=== PATIENT | male | born 1945 | race Caucasian/White ===

== ENCOUNTER 2018-10-22 21:10 | Emergency (ER) | payer MEDICARE, BC, SELFPAY ==
--- NOTE | 2018-10-22 21:11 | DI.RAD.S_ITS ---
PROCEDURE: XR CHEST 1V INDICATIONS: sob TECHNIQUE: One view of the chest was acquired. COMPARISON: None. FINDINGS: Surgical changes and devices: Remote CABG plus valve surgery.. Lungs and pleura: Lungs are clear. No pleural effusions or pneumothorax. Mediastinum: Mediastinal contours appear normal. Mild cardiomegaly Bones and chest wall: There are multiple potential sclerotic lesions in the bones, including the right humeral head and right scapula and ribs. Findings are suspicious for possible blastic metastatic disease. Overlying soft tissues appear unremarkable. IMPRESSION: Question osseous blastic metastatic disease. Mild cardiomegaly. Negative for acute pulmonary process. Comment: Consider CT chest to evaluate possible bony metastatic lesions. This should include the right humeral head in the [id number]. Dictated by: Trace Dunlap M.D. on 10/22/2018 at 21:32 Approved by: Trace Dunlap M.D. on 10/22/2018 at 21:36
[2018-10-22 21:14] VITALS: BP 155/67; PULSE 73; RESP 19; TEMP 37.9; O2SAT 98; BMI 35.2
--- NOTE | 2018-10-22 21:17 | ED_ITS ---
HPI - SOB/Dyspnea General Chief Complaint: Shortness of Breath/Dyspnea Stated Complaint: SOB Time Seen by Provider: 10/22/18 21:16 Source: EMS Mode of arrival: EMS History of Present Illness Patient is a 73-year-old male with history of metastatic prostate cancer atrial fibrillation and cardiac valvular disease who presents with left-sided chest pain. He is visiting here from [place] yesterday he says he thought he had indigestion from bad food. He said it was worse indigestion he has ever had however by midmorning today he started having left-sided lower rib pain. He says it hurts every time he takes a breath and therefore feel short of breath but does not really have chest pain. does not radiate seems to be going in [address]. He denies any productive cough or fever. MD Complaint: chest pain Onset (ago): hour(s) Consistency/Duration: constant Related Data Previous Rx's Medication Instructions Recorded doxycycline hyclate 100 mg PO BID #14 cap 10/22/18 Review of Systems Review of Systems ROS Unobtainable: All systems reviewed & are unremarkable except as noted in HPI and below Constitutional Denies chills and Reports fever(s) (low grade in ED) Cardiovascular Reports chest pain (left sided), Reports irregular heart rhythm (hx of a.fib), Denies lightheadedness, Denies palpitations and Denies orthopnea Respiratory Reports pain on inspiration and Denies wheezing Gastrointestinal Gastrointestinal: Denies abdominal pain, Denies change in bowel habits, Denies diarrhea, Denies nausea and Denies vomiting Musculoskeletal Denies back pain, Denies muscle weakness, Denies numbness and Denies tingling Integumentary/Breasts Denies pruritus, Denies erythema, Denies rash and Denies wounds Neurologic Denies numbness and Denies tingling Endocrine Denies palpitations Allergic/Immunologic Denies wheezing [facility] Medical History Atrial fibrillation (Acute) Prostate cancer (Acute) Valvular heart disease (Acute) Social History Smoking Status: Former smoker Social History Smoking Status: Former smoker Comment: from [place] Exam Initial Vital Signs Initial Vital Signs: Vital Signs Temperature 100.2 F H 10/22/18 21:14 Pulse Rate 73 10/22/18 21:14 Respiratory Rate 19 10/22/18 21:14 Blood Pressure 155/67 H 10/22/18 21:14 Pulse Oximetry 98 10/22/18 21:14 GENERAL: Alert well-appearing gentleman in no acute distress HEENT: Head atraumatic,EOMI, pupils reactive CARDIOVASCULAR: Regular rate and rhythm without murmurs, rubs or gallops. Pain left lower ribs and left upper quadrant tender in 1 spot not reproducible with palpation RESPIRATORY: Breath sounds equal bilaterally, no wheezes rales or rhonchi. ABDOMEN: Soft, nontender. Normoactive bowel sounds all 4 quadrants. No guarding or rebound. left upper quadrant rib pain EXTREMITIES: Normal range of motion, no clubbing or edema. Neurovascularly intact NEUROLOGICAL: Alert and oriented x4.Normal gait and speech. SKIN: Warm, dry, no laceration, no petechiae, no rashes or lesions. Course Orders Ordered: Discontinued Medications Albuterol/Ipratropium (Duoneb) 3 ml INH NOW ONE Stop: 10/22/18 21:10 Aspirin (Aspirin Chew) 324 mg PO NOW ONE Stop: 10/22/18 21:26 Doxycycline Hyclate (Vibramycin) 100 mg PO NOW ONE Stop: 10/22/18 23:36 Last Admin: 10/22/18 23:52 Dose: 100 mg Nitroglycerin (Nitrostat) 0.4 mg SL [id number] PRN PRN Reason: Chest Pain Vital Signs - 8 hr 10/22/18 21:14 10/22/18 22:02 10/22/18 23:05 Temperature 100.2 F H Pulse Rate 73 72 60 Respiratory Rate 15 19 Blood Pressure 155/67 H Blood Pressure [Left Arm] 137/75 131/66 Pulse Oximetry 98 92 95 MDM - SOB/Dyspnea Lab Data Attestation: I reviewed the patient's lab results. Result diagrams: 10/22/18 21:50 10/22/18 21:50 Lab Results 10/22/18 10/22/18 10/22/18 Range/Units 21:50 21:50 21:50 WBC 14.0 H (4.5-11.0) X10^3/uL RBC 4.15 L (4.5-5.9) X10^6/uL Hgb 13.9 (13.5-17.5) g/dL Hct 41.0 (41-53) % MCV 98.8 (80-100) fL MCH 33.5 (26-34) PG MCHC 33.9 (30-36) % RDW 15.5 H (11.6-14.8) % Plt Count 135 L (150-400) X10^3/uL Neut % (Auto) 84.6 H (50-75) % Lymph % (Auto) 7.9 L (25-40) % [place] % (Auto) 7.3 (3-14) % Eos % (Auto) 0.0 L (2-4) % Baso % (Auto) 0.2 (0-2) % Neut # (Auto) 48693 H (9570-6875) /uL Lymph # (Auto) 1100 (6126-0326) /uL [place] # (Auto) 1000 H (0-900) /uL Eos # (Auto) 0 (0-450) /uL Baso # (Auto) 0 (0-100) /uL PT (10.1-12.7) SECONDS INR (0.9-1.3) APTT (26.4-36.2) SECONDS Sodium 137 (137-145) mmol/L Potassium 3.9 (3.4-5.1) mmol/L Chloride 101 (98-107) mmol/L Carbon Dioxide 29 (22-32) mmol/L BUN 15 (9-20) mg/dL Creatinine 0.70 (0.66-1.25) mg/dL Estimated GFR > 60.0 (>60) mL/min BUN/Creatinine Ratio 21.4 (6-22) Glucose 130 H (80-110) mg/dL Lactate (0.7-2.1) mmol/L Calcium 9.2 (8.4-10.2) mg/dL Magnesium 1.7 (1.6-2.3) mg/dL Total Bilirubin 2.2 H (0.2-1.3) mg/dL AST 27 (17-59) IU/L ALT 36 (21-72) IU/L Alkaline Phosphatase 80 (38-126) U/L Total Creatine Kinase 30 L (55-170) U/L CK-MB (CK-2) TNP CK-MB (CK-2) Rel Index TNP Troponin I 0.016 (0.01-0.034) ng/mL B-Natriuretic Peptide < 100 (<100) Total Protein 6.6 (6.3-8.2) g/dL Albumin 3.8 (3.5-5.0) g/dL Globulin 2.8 (1.7-4.1) g/dL Albumin/Globulin Ratio 1.4 (1.0-2.8) Lipase (23-300) U/L Procalcitonin 0.23 (<0.5) ng/mL Urine RBC (0-5/HPF) Urine WBC (0-5/HPF) Urine Bacteria (None) Ur Culture Indicated? 10/22/18 10/22/18 10/22/18 Range/Units 21:50 21:50 21:50 WBC (4.5-11.0) X10^3/uL RBC (4.5-5.9) X10^6/uL Hgb (13.5-17.5) g/dL Hct (41-53) % MCV (80-100) fL MCH (26-34) PG MCHC (30-36) % RDW (11.6-14.8) % Plt Count (150-400) X10^3/uL Neut % (Auto) (50-75) % Lymph % (Auto) (25-40) % [place] % (Auto) (3-14) % Eos % (Auto) (2-4) % Baso % (Auto) (0-2) % Neut # (Auto) (6049-8521) /uL Lymph # (Auto) (1705-8380) /uL [place] # (Auto) (0-900) /uL Eos # (Auto) (0-450) /uL Baso # (Auto) (0-100) /uL PT 27.1 H (10.1-12.7) SECONDS INR 2.3 H (0.9-1.3) APTT 38 H (26.4-36.2) SECONDS Sodium (137-145) mmol/L Potassium (3.4-5.1) mmol/L Chloride (98-107) mmol/L Carbon Dioxide (22-32) mmol/L BUN (9-20) mg/dL Creatinine (0.66-1.25) mg/dL Estimated GFR (>60) mL/min BUN/Creatinine Ratio (6-22) Glucose (80-110) mg/dL Lactate 1.8 (0.7-2.1) mmol/L Calcium (8.4-10.2) mg/dL Magnesium (1.6-2.3) mg/dL Total Bilirubin (0.2-1.3) mg/dL AST (17-59) IU/L ALT (21-72) IU/L Alkaline Phosphatase (38-126) U/L Total Creatine Kinase (55-170) U/L CK-MB (CK-2) CK-MB (CK-2) Rel Index Troponin I (0.01-0.034) ng/mL B-Natriuretic Peptide (<100) Total Protein (6.3-8.2) g/dL Albumin (3.5-5.0) g/dL Globulin (1.7-4.1) g/dL Albumin/Globulin Ratio (1.0-2.8) Lipase 36 (23-300) U/L Procalcitonin (<0.5) ng/mL Urine RBC (0-5/HPF) Urine WBC (0-5/HPF) Urine Bacteria (None) Ur Culture Indicated? 10/22/18 Range/Units 23:00 WBC (4.5-11.0) X10^3/uL RBC (4.5-5.9) X10^6/uL Hgb (13.5-17.5) g/dL Hct (41-53) % MCV (80-100) fL MCH (26-34) PG MCHC (30-36) % RDW (11.6-14.8) % Plt Count (150-400) X10^3/uL Neut % (Auto) (50-75) % Lymph % (Auto) (25-40) % [place] % (Auto) (3-14) % Eos % (Auto) (2-4) % Baso % (Auto) (0-2) % Neut # (Auto) (9244-9624) /uL Lymph # (Auto) (9631-9026) /uL [place] # (Auto) (0-900) /uL Eos # (Auto) (0-450) /uL Baso # (Auto) (0-100) /uL PT (10.1-12.7) SECONDS INR (0.9-1.3) APTT (26.4-36.2) SECONDS Sodium (137-145) mmol/L Potassium (3.4-5.1) mmol/L Chloride (98-107) mmol/L Carbon Dioxide (22-32) mmol/L BUN (9-20) mg/dL Creatinine (0.66-1.25) mg/dL Estimated GFR (>60) mL/min BUN/Creatinine Ratio (6-22) Glucose (80-110) mg/dL Lactate (0.7-2.1) mmol/L Calcium (8.4-10.2) mg/dL Magnesium (1.6-2.3) mg/dL Total Bilirubin (0.2-1.3) mg/dL AST (17-59) IU/L ALT (21-72) IU/L Alkaline Phosphatase (38-126) U/L Total Creatine Kinase (55-170) U/L CK-MB (CK-2) CK-MB (CK-2) Rel Index Troponin I (0.01-0.034) ng/mL B-Natriuretic Peptide (<100) Total Protein (6.3-8.2) g/dL Albumin (3.5-5.0) g/dL Globulin (1.7-4.1) g/dL Albumin/Globulin Ratio (1.0-2.8) Lipase (23-300) U/L Procalcitonin (<0.5) ng/mL Urine RBC None seen (0-5/HPF) Urine WBC 1-5/hpf (0-5/HPF) Urine Bacteria Many (>30) H (None) Ur Culture Indicated? Specimen cultured Urine Dip Bedside Urine Glucose Negative Bedside Urine Bilirubin - Negative Bedside Urine Ketone +/- 5 Urine Specific [place] 1.010 Bedside Urine Occult Blood - Negative Bedside Urine Protein +/- 15 Bedside Urine Urobilinogen +/- 1mg Bedside Urine Nitrite - Negative Bedside Urine Leukocytes + 70 Esterase Imaging Data Chest x-ray: Radiologist's impression: PROCEDURE: XR CHEST 1V INDICATIONS: sob TECHNIQUE: One view of the chest was acquired. COMPARISON: None. FINDINGS: Surgical changes and devices: Remote CABG plus valve surgery.. Lungs and pleura: Lungs are clear. No pleural effusions or pneumothorax. Mediastinum: Mediastinal contours appear normal. Mild cardiomegaly Bones and chest wall: There are multiple potential sclerotic lesions in the bones, including the right humeral head and right scapula and ribs. Findings are suspicious for possible blastic metastatic disease. Overlying soft tissues appear unremarkable. IMPRESSION: Question osseous blastic metastatic disease. Mild cardiomegaly. Negative for acute pulmonary process. Comment: Consider CT chest to evaluate possible bony metastatic lesions. This should include the right humeral head in the [id number]. Dictated by: Trace Dunlap M.D. 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 Bibasilar atelectasis and consolidation. Blastic metastasis compatible with prostate primary CT scan - abdomen: Radiologist's impression: manufacturing shift supervisor report: Innumerable blastic bony metastasis no acute intraperitoneal abnormality. ECG Data Attestation: I personally reviewed and interpreted this ECG as follows: Prior ECG tracings: not available for review Interpretation: Atrial fibrillation rate 75 do not agree with computer interpretation of acute AR he no ST elevations or depressions artifact noted EKG 2. Atrial fibrillation rate 74 similar to previous MDM Narrative Medical decision making narrative: At this time patient does not appear septic or toxic.Chest pain does not seem cardiac in nature it is in the left upper quadrant he has multiple blastic lesions throughout the thoracic spine bilateral ribs sternum and scapula of the right humerus. I suspect that his pain is probably from a blastic lesion. He does have mild leukocytosis low-grade fever with signs of upper right lobe infiltrate. I will put him on doxycycline. I discussed at length with patient and his needs to go to nearest ER if having any further difficulty pain. patient INR is 2.3 I do not suspect PE. I discussed need to check INR frequently while taking antibiotics. The patient does have a portable 1 that he has been using his at home he checks it once a week calls the company who then called his doctor who then calls him. He has it with him. We discussed risk of elevated INR and also risk of subtherapeutic INR. I discussed all findings with the patient and , Education has been performed regarding treatment plan, diagnosis, warning signs and symptoms and all concerns have been addressed. Verbally agree with and understood all of the above. Discharge Plan Departure Patient Disposition: Home Clinical Impression: Pneumonitis, Prostate cancer metastatic to bone Discharge Date/Time: 10/23/18 00:43 Interventions: ED Discharge Assessment Last Done: 10/23/18 00:39 Instructions: DI for Pneumonia -- Adult Activity Restrictions/Additional Instructions: *You have been diagnosed with pneumonitis and metastatic prostate cancer *What to do: Check INR every 2-3 days antibiotics can increase or decrease her INR. Go to nearest ER if you are having any further difficulty *Continue to take medications as directed Doxycycline 100 mg twice daily for 7 days *Follow up with your primary care provider in 2-3 days *Return to ER if you should have fever not controlled, worsening shortness of breath, chest pain or any new, worsening or concerning symptoms Prescriptions: New doxycycline hyclate 100 mg capsule 100 mg PO BID Qty: 14 RF: 0
--- NOTE | 2018-10-22 21:58 | DI.CT.S_ITS ---
PROCEDURE: CT CHEST ABD PEL W CON INDICATIONS: metastatic prostate cancer luq pain TECHNIQUE: After the administration of intravenous contrast, 5 mm thick sections acquired from the lung apices to the symphysis. 5 mm coronal and sagittal reformats were performed, with additional 7 mm MIP reformats through the lungs. For radiation dose reduction, the following was used: automated exposure control, adjustment of mA and/or kV according to patient size. COMPARISON: [facility], CR, XR CHEST 1V, 10/22/2018, 21:26. FINDINGS: Image quality: Excellent. CHEST: Lungs and pleura: There is an irregular groundglass nodule or nodular infiltrate in the right upper lobe measuring 2.3 x 2.1 cm. There are subpleural infiltrate and septal thickening bilaterally. There are bibasilar consolidation or atelectasis. A small left pleural effusion is present. No pneumothorax. Central and peripheral airways appear patent and normal in caliber. Mediastinum: Heart size is normal. No pericardial effusion. No mediastinal or hilar adenopathy by size criteria. Thoracic aorta and central pulmonary arteries are normal in size. Esophagus is normal in caliber. Tiny hiatal hernia. Chest wall: No axillary or supraclavicular adenopathy by size criteria. Thyroid gland enlarged and nodular. ABDOMEN: Solid organs: Liver is normal in size and enhancement. Gallbladder is surgically absent. Biliary system is non dilated. Pancreas enhances normally. Spleen is normal in size and enhancement. No adrenal nodules. Multiple indeterminate low density nodules in kidneys are present. Kidneys demonstrate normal size and enhancement, without hydronephrosis. Peritoneum and bowel: Bowel loops demonstrate normal wall thickness and caliber. No free fluid or air. Nodes and vessels: No retroperitoneal or mesenteric adenopathy by size criteria. Aorta and inferior vena cava are normal in size. A saccular aneurysm is seen in the distal abdominal aorta measuring 2..7 cm cephalocaudal x 1.3 cm anterior-posterior x 2.0 cm transverse, arising from the posterior wall. There is moderate osteoporosis. Miscellaneous: No ventral hernias. PELVIS: Genitourinary: Bladder wall thickness is normal. Prostate is enlarged. Miscellaneous: No inguinal hernias or adenopathy. Bones: There are widespread sclerotic bone lesions consistent with osseous metastases. No vertebral body compression fractures. IMPRESSION: 1. There is a 2.2 x 2.1 cm irregular groundglass nodule or nodular infiltrate. There are bibasilar consolidation or atelectasis. A small left effusion is present. An infectious or inflammatory etiology is favored. 2. Multiple indeterminate low density nodules in kidneys are most likely cysts. 3. Extensive osseous metastatic disease. 4. Enlarged prostate. 5. A saccular aneurysm in the distal abdominal aorta. 6. Prominent and nodular thyroid gland. Please correlate with serum function tests and thyroid ultrasound. 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 Dictated by: Isa White M.D. on 10/23/2018 at 7:43 Approved by: Isa White M.D. on 10/23/2018 at 7:53
--- NOTE | 2018-10-22 21:59 | PC.NURSE ---
Provider held medication orders at this time.
[2018-10-22 22:00] LABS: Add Manual Diff / Slide Review NO; Basophils Absolute Auto 0 /uL (0-100); Basophils Percent Auto 0.2 % (0-2); Eosinophils Absolute Auto 0 /uL (0-450); Hemoglobin 13.9 g/dL (13.5-17.5); Lymphocytes Absolute Auto 1100 /uL (1100-4500); Lymphocytes Percent Auto 7.9 % (25-40); Mean Corpuscular HGB Conc 33.9 % (30-36); Mean Corpuscular Hemoglobin 33.5 PG (26-34); Mean Corpuscular Volume 98.8 fL (80-100); Monocytes Absolute Auto 1000 /uL (0-900); Monocytes Percent Auto 7.3 % (3-14); Neutrophils Absolute Auto 11900 /uL (1500-7000); Neutrophils Percent Auto 84.6 % (50-75); Platelet Count 135 X10^3/uL (150-400); Red Blood Cell Count 4.15 X10^6/uL (4.5-5.9); Red Cell Distribution Width 15.5 % (11.6-14.8)
[2018-10-22 22:02] VITALS: BP 137/75; PULSE 72; RESP 15; O2SAT 92
--- NOTE | 2018-10-22 22:05 | PC.NURSE ---
pt reports metatastic prostate cancer. States he is having a severe pinching feeling on his left side with deep inspiration or coughing.
[2018-10-22 22:09] LABS: INR 2.3 (0.9-1.3); Prothrombin Time 27.1 SECONDS (10.1-12.7)
[2018-10-22 22:11] LABS: PTT Partial Thromboplastin Tim 38 SECONDS (26.4-36.2)
[2018-10-22 22:13] LABS: Alanine Aminotransferase 36 IU/L (21-72); Albumin 3.8 g/dL (3.5-5.0); Albumin Globulin Ratio 1.4 (1.0-2.8); Alkaline Phosphatase 80 U/L (38-126); Aspartate Aminotransferase 27 IU/L (17-59); BUN Creatinine Ratio 21.4 (6-22); Bilirubin Total 2.2 mg/dL (0.2-1.3); Blood Urea Nitrogen 15 mg/dL (9-20); Calcium 9.2 mg/dL (8.4-10.2); Carbon Dioxide 29 mmol/L (22-32); Chloride 101 mmol/L (98-107); Creatine Kinase 30 U/L (55-170); Estimated Glomerular Filt Rate > 60.0 mL/min (>60); Globulin 2.8 g/dL (1.7-4.1); Glucose 130 mg/dL (80-110); HEMOLYSIS < 15 (0-50); Lipase 36 U/L (23-300); Magnesium 1.7 mg/dL (1.6-2.3); Potassium 3.9 mmol/L (3.4-5.1); Sodium 137 mmol/L (137-145); Total Protein 6.6 g/dL (6.3-8.2)
[2018-10-22 22:14] LABS: Lactate (Lactic Acid) 1.8 mmol/L (0.7-2.1)
[2018-10-22 22:24] LABS: B Type Natriuretic Peptide < 100 (<100)
[2018-10-22 22:25] LABS: Troponin I 0.016 ng/mL (0.01-0.034)
[2018-10-22 22:27] LABS: Procalcitonin 0.23 ng/mL (<0.5)
[2018-10-22 23:05] VITALS: BP 131/66; PULSE 60; RESP 19; O2SAT 95
[2018-10-22 23:17] LABS: RBC Urine None Seen (0-5/HPF)
[2018-10-22 23:25] LABS: Bacteria Urine Many (>30); WBC Urine 1-5/HPF (0-5/HPF)
[2018-10-22 23:26] LABS: Culture Indicated Urine Specimen Cultured
[2018-10-22] MEDS: DOXYCYCLINE HYCLATE 100 MG TABLET PO (23:52)
[2018-10-23 00:39] VITALS: BP 132/65; PULSE 68; RESP 21; O2SAT 96
== END 2018-10-23 00:43 | disposition home or self-care (01) ==
PROVIDERS: Emergency Provider Emergency Medicine
CPT/HCPCS: 36415; 36591; 71045; 71260; 74177; 80053; 81003; 81015; 82550; 83605; 83690; 83735; 83880; 84145; 84484; 85025; 85610; 85730; 87040; 87077; 87086; 93005; Q9967

== ENCOUNTER 2018-10-23 09:42 | Inpatient (IN) | payer MEDICARE, BC, SELFPAY ==
[2018-10-23] VITALS (36 sets, daily range): BP systolic 60–219; BP diastolic 23–130; PULSE 61–113; RESP 12–40; TEMP 36.7–36.8; O2SAT 88–100; BMI 35.7
--- NOTE | 2018-10-23 | DI.RAD.S_ITS ---
PROCEDURE: XR CHEST 1V INDICATIONS: respiratory failure ? ARDS TECHNIQUE: One view of the chest was acquired. COMPARISON: [facility], CT, CT CHEST ABD PEL W CON, 10/22/2018, 22:27. [facility], CR, XR CHEST 1V, 10/23/2018, 11:29. [facility], CR, XR CHEST 1V, 10/23/2018, 13:09. FINDINGS: Surgical changes and devices: The endotracheal tube, nasogastric tube and left PICC central line are in stable position. Lungs and pleura: There is moderate left pleural effusion with left basilar consolidation or atelectasis. Overall, there is no significant change. No pneumothorax. Mediastinum: Mediastinal contours appear normal. Heart size is mildly increased. Bones and chest wall: Sclerotic bone lesions in ribs bilaterally, scapulae bilaterally and right clavicle are consistent with metastases. Overlying soft tissues appear unremarkable. IMPRESSION: 1. Moderate left effusion with left basilar consolidation or atelectasis. 2. Mild cardiomegaly. 3. Osseous metastasis. Dictated by: Isa White M.D. on 10/23/2018 at 20:15 Approved by: Isa White M.D. on 10/23/2018 at 20:19
--- NOTE | 2018-10-23 09:46 | DI.RAD.S_ITS ---
PROCEDURE: XR CHEST 1V INDICATIONS: Left lower chest pain, worsening. Concern for possible pneumonia on CT scanning last evening. Extensive osseous metastatic disease related to prostate carcinoma. TECHNIQUE: One view of the chest was acquired. COMPARISON: [facility], CT, CT CHEST ABD PEL W CON, 10/22/2018, 22:27. [facility], CR, XR CHEST 1V, 10/22/2018, 21:26. FINDINGS: Surgical changes and devices: Sternotomy wires, probable aortic valve replacement surgery. Lungs and pleura: Lungs are abnormal with reference to the prior chest plain film yesterday and the CT that was performed yesterday evening. There has been progression of asymmetric pneumonia, left greater than right, in this patient. No pleural effusions or pneumothorax. Mediastinum: Mediastinal contours appear normal. Heart size is normal. Bones and chest wall: No new suspicious bony lesions. Overlying soft tissues appear unremarkable. IMPRESSION: Osseous metastatic disease again noted. Worsening pneumonia bilaterally greater on the left than the right. Sternotomy wires, presumed prior aortic valve replacement surgery. Dictated by: Rainer Avila M.D. on 10/23/2018 at 10:42 Approved by: Rainer Avila M.D. on 10/23/2018 at 11:38
--- NOTE | 2018-10-23 10:05 | ED_ITS ---
HPI - SOB/Dyspnea General Chief Complaint: Shortness of Breath/Dyspnea Stated Complaint: L side pain with deep breath getting worse Time Seen by Provider: 10/23/18 09:46 Source: patient Mode of arrival: EMS Limitations: no limitations History of Present Illness Patient is a 73-year-old male who was seen evaluated here last night with known history of metastatic prostate cancer. He continues to have a left sided rib pain. He says it hurts every time he breathes or moves the pain is quite unbearable he never got any better. He had full CT chest abdomen and pelvis last night low-grade fever diagnosed with pneumonitis. He continues to have pain in 1 particular area. He feels short of breath because it hurts so much to breathe. He denies other chest pain. MD Complaint: pain with inspiration and chest pain Context: recent illness Severity: severe Consistency/Duration: constant Relieving factors: nothing Exacerbating factors: nothing Related Data Home Medications Medication Instructions Recorded Confirmed Calcium 1 tab PO TID 10/23/18 10/23/18 One-A-Day Men's Multivitamin 1 tab PO DAILY 10/23/18 10/23/18 abiraterone [Zytiga] 1,000 mg PO DAILY 10/23/18 10/23/18 amiodarone 400 mg PO DAILY 10/23/18 10/23/18 aspirin 81 mg PO BEDTIME 10/23/18 10/23/18 atorvastatin [Lipitor] 10 mg PO DAILY 10/23/18 10/23/18 garlic 1 tab PO QAM 10/23/18 10/23/18 metoprolol succinate [Toprol XL] 100 mg PO QPM 10/23/18 10/23/18 omega-3 acid ethyl esters [Lovaza] 1 cap PO BID 10/23/18 10/23/18 pantoprazole 40 mg PO DAILY 10/23/18 10/23/18 prednisone 5 mg PO BID 10/23/18 10/23/18 ramipril [Altace] 5 mg PO DAILY 10/23/18 10/23/18 warfarin 1 dose PO QPM 10/23/18 10/23/18 Previous Rx's Medication Instructions Recorded doxycycline hyclate 100 mg PO BID #14 cap 10/22/18 Allergies Allergy/AdvReac Type Severity Reaction Status Date / Time No Known Drug Allergies Allergy Verified 10/23/18 16:02 Review of Systems Review of Systems ROS Unobtainable: All systems reviewed & are unremarkable except as noted in HPI and below Constitutional Denies chills, Denies fever(s), Denies lethargy and Denies weakness ENT Ears, Nose, Mouth, and Throat: Denies change in voice, Denies neck pain and Denies sore throat Cardiovascular Reports as per HPI Respiratory Reports as per HPI, Denies change in phlegm color and Reports pain on inspiration Gastrointestinal Gastrointestinal: Denies abdominal pain, Denies change in bowel habits, Denies diarrhea, Denies nausea and Denies vomiting Genitourinary Denies hematuria, Denies flank pain, Denies urinary incontinence and Denies urinary urgency Musculoskeletal Denies neck pain Integumentary/Breasts Denies pruritus, Denies erythema, Denies rash and Denies wounds Neurologic Denies weakness [facility] Medical History (Updated 10/23/18 @ 15:33 by Danette Wright MD) Hyperlipidemia (Acute) Hypertension (Acute) Atrial fibrillation (Acute) Prostate cancer (Acute) Valvular heart disease (Acute) Surgical History (Updated 10/23/18 @ 15:33 by Danette Wright MD) H/O abdominal surgery (Acute) History of aortic aneurysm repair (Acute) 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 (Acute) Social History household members: significant other and friend(s) Smoking Status: Former smoker Social History household members: significant other and friend(s) Smoking Status: Former smoker Exam Initial Vital Signs Initial Vital Signs: Vital Signs Pulse Rate 74 10/23/18 11:25 Respiratory Rate 40 H 10/23/18 11:25 Blood Pressure 175/130 H 10/23/18 11:25 Pulse Oximetry 88 L 10/23/18 11:25 GENERAL: The patient overall appears in significant pain holding his left side- lower ribs HEENT: Head atraumatic,EOMI, pupils reactive, face symmetric, neck is supple CARDIOVASCULAR: Regular rate and rhythm without murmurs, rubs or gallops. RESPIRATORY: Tachypneic with decreased breath bilaterally unable speak in full sentences ABDOMEN: Soft, nontender. Normoactive bowel sounds all 4 quadrants. No guarding or rebound. EXTREMITIES: Normal range of motion, no clubbing or edema. Neurovascularly intact NEUROLOGICAL: Alert and oriented x4.Normal gait and speech. Cranial nerves II through XII grossly intact. SKIN: Warm, dry, no laceration, no petechiae, no rashes or lesions. Procedures Intubation Time out performed: Yes sedative: Etomidate Mg Given: 20 paralytic: Succinylcholine Mg Given: 100 Laryngoscope: other (glide scope) ET Tube Size: 7.5 ET Tube Uncuffed: Yes Tube Secured Depth (cm): 22 Tube Secured Location: lips Tube Placement Confirmation: Visualized tube passing through cords, Equal breath sounds bilaterally, No breath sounds over epigastrium, Confirmation by capnometry and Chest Xray Patient Tolerated Procedure: Well Intubation Complications: none Course Orders Ordered: ED Orders 10/23/18 09:46 XR chest 1V Stat EKG-12 Lead Stat 10/23/18 10:25 B Type Natriuretic Peptide Stat Complete Blood Count AUTO DIFF Stat Comprehensive Metabolic Panel Stat Lactate (Lactic Acid) Stat Lipase Stat Procalcitonin Stat Prothrombin Time INR Stat Troponin & CK Cardiac Panel Stat 10/23/18 11:30 Chest [XR chest 1V] Stat 10/23/18 11:41 US chest Stat 10/23/18 11:45 Urinalysis and Microscopic Stat Urine Culture Stat 10/23/18 13:01 Chest [XR chest 1V] Stat 10/23/18 13:25 Blood Culture Stat 10/23/18 15:17 Consult to Dietitian, Adult Routine Endotracheal tube suction As needed 10/23/18 15:30 Arterial Blood Gas Daily Complete Blood Count AUTO DIFF DAILY Comprehensive Metabolic Panel DAILY Sputum Culture 10/23/18 15:43 Arterial Blood Gas Stat 10/23/18 16:49 Lactate (Lactic Acid) Stat 10/24/18 05:00 Complete Blood Count AUTO DIFF Routine Comprehensive Metabolic Panel Routine Prothrombin Time INR Routine 10/24/18 06:00 XR chest 1V Routine 10/24/18 15:30 XR chest 1V DAILY Arterial Blood Gas Daily Complete Blood Count AUTO DIFF DAILY Comprehensive Metabolic Panel DAILY Sputum Culture 10/25/18 06:00 XR chest 1V Routine 10/25/18 15:30 XR chest 1V DAILY Arterial Blood Gas Daily Complete Blood Count AUTO DIFF DAILY Comprehensive Metabolic Panel DAILY Sputum Culture 10/26/18 15:30 XR chest 1V DAILY Arterial Blood Gas Daily Complete Blood Count AUTO DIFF DAILY Comprehensive Metabolic Panel DAILY 10/27/18 15:30 XR chest 1V DAILY Arterial Blood Gas Daily Complete Blood Count AUTO DIFF DAILY Comprehensive Metabolic Panel DAILY 10/28/18 15:30 XR chest 1V DAILY Arterial Blood Gas Daily Complete Blood Count AUTO DIFF DAILY Comprehensive Metabolic Panel DAILY 10/29/18 15:30 XR chest 1V DAILY Arterial Blood Gas Daily Complete Blood Count AUTO DIFF DAILY Comprehensive Metabolic Panel DAILY 10/30/18 15:30 XR chest 1V DAILY Arterial Blood Gas Daily Complete Blood Count AUTO DIFF DAILY Comprehensive Metabolic Panel DAILY 10/31/18 15:30 XR chest 1V DAILY Arterial Blood Gas Daily Complete Blood Count AUTO DIFF DAILY Comprehensive Metabolic Panel DAILY 11/01/18 15:30 XR chest 1V DAILY Arterial Blood Gas Daily Complete Blood Count AUTO DIFF DAILY Comprehensive Metabolic Panel DAILY 11/02/18 15:30 XR chest 1V DAILY Arterial Blood Gas Daily Complete Blood Count AUTO DIFF DAILY Comprehensive Metabolic Panel DAILY 11/03/18 15:30 XR chest 1V DAILY Arterial Blood Gas Daily Complete Blood Count AUTO DIFF DAILY Comprehensive Metabolic Panel DAILY 11/04/18 15:30 XR chest 1V DAILY Arterial Blood Gas Daily Complete Blood Count AUTO DIFF DAILY Comprehensive Metabolic Panel DAILY 11/05/18 15:30 XR chest 1V DAILY Arterial Blood Gas Daily Complete Blood Count AUTO DIFF DAILY Comprehensive Metabolic Panel DAILY Acetaminophen (Tylenol) 650 mg [place] Q6HR PRN PRN Reason: As Needed for Fever/Mild Pain Amiodarone HCl (Cordarone) 400 mg PO DAILY [facility] Aspirin (Aspirin Chew) 81 mg PO DAILY [facility] Atorvastatin Calcium (Lipitor) 10 mg PO BEDTIME [facility] Bisacodyl (Dulcolax) 10 mg [place] DAILY PRN PRN Reason: Constipation Hydromorphone HCl (Dilaudid) 0.5 mg SUBCUT Q4H PRN PRN Reason: Pain, Severe (7-10) Last Admin: 10/23/18 10:17 Dose: 0.5 mg Famotidine (Pepcid) 20 mg in 50 mls @ 200 mls/hr IV Q12H ANETTE Azithromycin 500 mg/ Dextrose 250 mls @ 250 mls/hr IV Q24H [facility] Lactated Ringer's (Lactated Ringers) 1,000 mls @ 100 mls/hr IV CONT ANETTE Last Admin: 10/23/18 16:20 Dose: 100 mls/hr Ceftriaxone Sodium/Dextrose (Rocephin) 2 gm in 50 mls @ 100 mls/hr IV Q24H [facility] Sodium Chloride (Normal Saline 0.9%) 500 mls @ 1,000 mls/hr IV BOLUS ONE Stop: 10/23/18 17:19 Last Admin: 10/23/18 17:14 Dose: 1,000 mls/hr Morphine Sulfate 50 mg/ (Dextrose) 50 mls @ 2 mls/hr IV TITRATE ANETTE; Protocol Midazolam HCl 50 mg/ Dextrose 250 mls @ 10 mls/hr IV TITRATE ANETTE; Protocol Metoprolol Succinate (Toprol Xl) 100 mg PO DAILY ANETTE Prednisone (Deltasone) 5 mg PO BID ANETTE Ramipril (Altace) 5 mg PO DAILY ANETTE Warfarin Sodium (Coumadin) 4 mg PO 1700 ANETTE Discontinued Medications Acetaminophen (Tylenol) 975 mg PO NOW ONE Stop: 10/23/18 09:50 Last Admin: 10/23/18 11:52 Dose: Not Given Aspirin (Aspirin Ec) 81 mg PO DAILY [facility] Last Admin: 10/23/18 16:35 Dose: Not Given Etomidate (Amidate) 20 mg IV NOW ONE Stop: 10/23/18 11:15 Last Admin: 10/23/18 11:24 Dose: 20 mg Hydromorphone HCl (Dilaudid) 1 mg IV NOW ONE Stop: 10/23/18 10:31 Last Admin: 10/23/18 10:38 Dose: 1 mg Hydromorphone HCl (Dilaudid) 1 mg IV NOW ONE Stop: 10/23/18 12:38 Last Admin: 10/23/18 12:43 Dose: 1 mg Ceftriaxone Sodium/Dextrose (Rocephin) 1 gm in 50 mls @ 100 mls/hr IV NOW ONE Stop: 10/23/18 11:11 Last Infusion: 10/23/18 13:58 Dose: 0 mls/hr Infusion: 10/23/18 11:05 Dose: 50 mls/hr Admin: 10/23/18 10:55 Dose: 100 mls/hr Azithromycin 500 mg/ Dextrose 250 mls @ 250 mls/hr IV NOW ONE Stop: 10/23/18 10:43 Last Infusion: 10/23/18 15:55 Dose: 0 mls/hr Admin: 10/23/18 13:59 Dose: 250 mls/hr Propofol (Propofol) 1,000 mg in 100 mls @ 3.084 mls/hr IV TITRATE ANETTE; Protocol Last Titration: 10/23/18 12:29 Dose: 5 mcg/kg/min, 3.084 mls/hr Titration: 10/23/18 12:27 Dose: 14.59 mcg/kg/min, 9 mls/hr Admin: 10/23/18 12:15 Dose: 18 mcg/kg/min, 11.102 mls/hr Propofol (Propofol) 1,000 mg in 100 mls @ 3.105 mls/hr IV TITRATE ANETTE; Protocol Last Admin: 10/23/18 17:11 Dose: Not Given Lorazepam (Ativan) 1 mg IV NOW ONE Stop: 10/23/18 12:38 Last Admin: 10/23/18 12:43 Dose: 1 mg Morphine Sulfate (Morphine) 2 mg IV NOW ONE Stop: 10/23/18 09:47 Last Admin: 10/23/18 11:51 Dose: Not Given Succinylcholine Chloride (Quelicin) 100 mg IV NOW ONE Stop: 10/23/18 11:17 Last Admin: 10/23/18 11:32 Dose: 100 mg Vital Signs - 8 hr 10/23/18 11:25 10/23/18 11:45 10/23/18 11:49 Temperature Pulse Rate 74 72 75 Respiratory Rate 40 H 14 14 Blood Pressure Blood Pressure [Left Arm] 175/130 H 106/52 L 106/52 L Pulse Oximetry 88 L 99 100 10/23/18 12:00 10/23/18 12:06 10/23/18 12:30 Temperature Pulse Rate 76 75 72 Respiratory Rate 14 14 14 Blood Pressure Blood Pressure [Left Arm] 78/43 L 88/64 L Pulse Oximetry 96 100 96 10/23/18 13:15 10/23/18 14:58 Temperature 98.0 F Pulse Rate 82 85 Respiratory Rate 20 20 Blood Pressure 88/40 L Blood Pressure [Left Arm] 109/23 L Pulse Oximetry 96 100 MDM - SOB/Dyspnea Lab Data Attestation: I reviewed the patient's lab results. Result diagrams: 10/23/18 10:25 10/23/18 10:25 Lab Results 10/23/18 10/23/18 10/23/18 Range/Units 10:25 10:25 10:25 WBC 14.2 H (4.5-11.0) X10^3/uL RBC 4.41 L (4.5-5.9) X10^6/uL Hgb 15.1 (13.5-17.5) g/dL Hct 43.1 (41-53) % MCV 97.8 (80-100) fL MCH 34.2 H (26-34) PG MCHC 35.0 (30-36) % RDW 15.8 H (11.6-14.8) % Plt Count 163 (150-400) X10^3/uL Neut % (Auto) 85.7 H (50-75) % Lymph % (Auto) 8.7 L (25-40) % [place] % (Auto) 5.2 (3-14) % Eos % (Auto) 0.0 L (2-4) % Baso % (Auto) 0.4 (0-2) % Neut # (Auto) 19761 H (0820-3314) /uL Lymph # (Auto) 1200 (1134-9820) /uL [place] # (Auto) 700 (0-900) /uL Eos # (Auto) 0 (0-450) /uL Baso # (Auto) 100 (0-100) /uL PT (10.1-12.7) SECONDS INR (0.9-1.3) ABG pH (7.35-7.45) ABG pCO2 (35-45) mmHg ABG pO2 (80-100) mmHg ABG HCO3 (22-26) mmol/L ABG Total CO2 (21-31) mmol/L ABG O2 Saturation (95-100) % ABG Base Excess (-2-2) mmol/L FiO2 Sodium 137 (137-145) mmol/L Potassium 3.8 (3.4-5.1) mmol/L Chloride 101 (98-107) mmol/L Carbon Dioxide 25 (22-32) mmol/L BUN 15 (9-20) mg/dL Creatinine 0.60 L (0.66-1.25) mg/dL Estimated GFR > 60.0 (>60) mL/min BUN/Creatinine Ratio 25.0 H (6-22) Glucose 128 H (80-110) mg/dL Lactate (0.7-2.1) mmol/L Calcium 9.1 (8.4-10.2) mg/dL Total Bilirubin 2.2 H (0.2-1.3) mg/dL AST 39 (17-59) IU/L ALT 35 (21-72) IU/L Alkaline Phosphatase 87 (38-126) U/L Total Creatine Kinase 36 L (55-170) U/L CK-MB (CK-2) TNP CK-MB (CK-2) Rel Index TNP Troponin I 0.021 (0.01-0.034) ng/mL B-Natriuretic Peptide 120 H (<100) Total Protein 6.9 (6.3-8.2) g/dL Albumin 4.0 (3.5-5.0) g/dL Globulin 2.9 (1.7-4.1) g/dL Albumin/Globulin Ratio 1.4 (1.0-2.8) Lipase 51 (23-300) U/L Procalcitonin 0.23 (<0.5) ng/mL Urine Color Urine Appearance Urine pH (4.5-8.0) Ur Specific [place] (1.000-1.035) Urine Protein (Negative) Urine Glucose (UA) (Negative) g/dL Urine Ketones (NEGATIVE) Urine Occult Blood (Negative) Urine Nitrate (Negative) Urine Bilirubin (NEGATIVE) Urine Urobilinogen (0.2) E.U./dL Ur Leukocyte Esterase (NEGATIVE) Urine RBC (0-5/HPF) Urine WBC (0-5/HPF) Urine Bacteria (None) Ur Culture Indicated? 10/23/18 10/23/18 10/23/18 Range/Units 10:25 10:25 11:45 WBC (4.5-11.0) X10^3/uL RBC (4.5-5.9) X10^6/uL Hgb (13.5-17.5) g/dL Hct (41-53) % MCV (80-100) fL MCH (26-34) PG MCHC (30-36) % RDW (11.6-14.8) % Plt Count (150-400) X10^3/uL Neut % (Auto) (50-75) % Lymph % (Auto) (25-40) % [place] % (Auto) (3-14) % Eos % (Auto) (2-4) % Baso % (Auto) (0-2) % Neut # (Auto) (4246-2570) /uL Lymph # (Auto) (4982-4299) /uL [place] # (Auto) (0-900) /uL Eos # (Auto) (0-450) /uL Baso # (Auto) (0-100) /uL PT 28.9 H (10.1-12.7) SECONDS INR 2.5 H (0.9-1.3) ABG pH (7.35-7.45) ABG pCO2 (35-45) mmHg ABG pO2 (80-100) mmHg ABG HCO3 (22-26) mmol/L ABG Total CO2 (21-31) mmol/L ABG O2 Saturation (95-100) % ABG Base Excess (-2-2) mmol/L FiO2 Sodium (137-145) mmol/L Potassium (3.4-5.1) mmol/L Chloride (98-107) mmol/L Carbon Dioxide (22-32) mmol/L BUN (9-20) mg/dL Creatinine (0.66-1.25) mg/dL Estimated GFR (>60) mL/min BUN/Creatinine Ratio (6-22) Glucose (80-110) mg/dL Lactate 1.4 (0.7-2.1) mmol/L Calcium (8.4-10.2) mg/dL Total Bilirubin (0.2-1.3) mg/dL AST (17-59) IU/L ALT (21-72) IU/L Alkaline Phosphatase (38-126) U/L Total Creatine Kinase (55-170) U/L CK-MB (CK-2) CK-MB (CK-2) Rel Index Troponin I (0.01-0.034) ng/mL B-Natriuretic Peptide (<100) Total Protein (6.3-8.2) g/dL Albumin (3.5-5.0) g/dL Globulin (1.7-4.1) g/dL Albumin/Globulin Ratio (1.0-2.8) Lipase (23-300) U/L Procalcitonin (<0.5) ng/mL Urine Color Yellow Urine Appearance Cloudy Urine pH 8.5 H (4.5-8.0) Ur Specific [place] 1.015 (1.000-1.035) Urine Protein 1+ H (Negative) Urine Glucose (UA) Negative (Negative) g/dL Urine Ketones Trace H (NEGATIVE) Urine Occult Blood Trace-lysed (Negative) Urine Nitrate Negative (Negative) Urine Bilirubin Negative (NEGATIVE) Urine Urobilinogen 0.2 (0.2) E.U./dL Ur Leukocyte Esterase 1+ H (NEGATIVE) Urine RBC None seen (0-5/HPF) Urine WBC 10-30/hpf H D (0-5/HPF) Urine Bacteria Many (>30) H (None) Ur Culture Indicated? Specimen cultured 10/23/18 Range/Units 15:43 WBC (4.5-11.0) X10^3/uL RBC (4.5-5.9) X10^6/uL Hgb (13.5-17.5) g/dL Hct (41-53) % MCV (80-100) fL MCH (26-34) PG MCHC (30-36) % RDW (11.6-14.8) % Plt Count (150-400) X10^3/uL Neut % (Auto) (50-75) % Lymph % (Auto) (25-40) % [place] % (Auto) (3-14) % Eos % (Auto) (2-4) % Baso % (Auto) (0-2) % Neut # (Auto) (3779-2255) /uL Lymph # (Auto) (9521-8595) /uL [place] # (Auto) (0-900) /uL Eos # (Auto) (0-450) /uL Baso # (Auto) (0-100) /uL PT (10.1-12.7) SECONDS INR (0.9-1.3) ABG pH 7.39 (7.35-7.45) ABG pCO2 30.5 L (35-45) mmHg ABG pO2 75 L (80-100) mmHg ABG HCO3 18 L (22-26) mmol/L ABG Total CO2 19 L (21-31) mmol/L ABG O2 Saturation 95 (95-100) % ABG Base Excess -7.0 L (-2-2) mmol/L FiO2 65 Sodium (137-145) mmol/L Potassium (3.4-5.1) mmol/L Chloride (98-107) mmol/L Carbon Dioxide (22-32) mmol/L BUN (9-20) mg/dL Creatinine (0.66-1.25) mg/dL Estimated GFR (>60) mL/min BUN/Creatinine Ratio (6-22) Glucose (80-110) mg/dL Lactate (0.7-2.1) mmol/L Calcium (8.4-10.2) mg/dL Total Bilirubin (0.2-1.3) mg/dL AST (17-59) IU/L ALT (21-72) IU/L Alkaline Phosphatase (38-126) U/L Total Creatine Kinase (55-170) U/L CK-MB (CK-2) CK-MB (CK-2) Rel Index Troponin I (0.01-0.034) ng/mL B-Natriuretic Peptide (<100) Total Protein (6.3-8.2) g/dL Albumin (3.5-5.0) g/dL Globulin (1.7-4.1) g/dL Albumin/Globulin Ratio (1.0-2.8) Lipase (23-300) U/L Procalcitonin (<0.5) ng/mL Urine Color Urine Appearance Urine pH (4.5-8.0) Ur Specific [place] (1.000-1.035) Urine Protein (Negative) Urine Glucose (UA) (Negative) g/dL Urine Ketones (NEGATIVE) Urine Occult Blood (Negative) Urine Nitrate (Negative) Urine Bilirubin (NEGATIVE) Urine Urobilinogen (0.2) E.U./dL Ur Leukocyte Esterase (NEGATIVE) Urine RBC (0-5/HPF) Urine WBC (0-5/HPF) Urine Bacteria (None) Ur Culture Indicated? Imaging Data Chest XR #1: Radiologist's impression: PROCEDURE: XR CHEST 1V INDICATIONS: Left lower chest pain, worsening. Concern for possible pneumonia on CT scanning last evening. Extensive osseous metastatic disease related to prostate carcinoma. TECHNIQUE: One view of the chest was acquired. COMPARISON: [facility], CT, CT CHEST ABD PEL W CON, 10/22/2018, 22:27. [facility], CR, XR CHEST 1V, 10/22/2018, 21:26. FINDINGS: Surgical changes and devices: Sternotomy wires, probable aortic valve replacement surgery. Lungs and pleura: Lungs are abnormal with reference to the prior chest plain film yesterday and the CT that was performed yesterday evening. There has been progression of asymmetric pneumonia, left greater than right, in this patient. No pleural effusions or pneumothorax. Mediastinum: Mediastinal contours appear normal. Heart size is normal. Bones and chest wall: No new suspicious bony lesions. Overlying soft tissues appear unremarkable. IMPRESSION: Osseous metastatic disease again noted. Worsening pneumonia bilaterally greater on the left than the right. Sternotomy wires, presumed prior aortic valve replacement surgery. Dictated by: Rainer Avila M.D. on 10/23/2018 at 10:42 Chest XR #2: Radiologist's impression: PROCEDURE: XR CHEST 1V INDICATIONS: tube placement TECHNIQUE: One view of the chest was acquired. COMPARISON: [facility], , XR CHEST 1V, 10/23/2018, 10:10. FINDINGS: Surgical changes and devices: ET tube tip is approximately 2 cm above the faith. Sternotomy wires and prosthetic heart valve are again seen. Lungs and pleura: There is extensive pulmonary vascular congestion. Left greater than right bilateral pleural effusion is seen. No gross pneumothorax. Extensive ill-defined air space opacities are noted scattered in bilateral lung sanchez. Mediastinum: Mediastinal contours appear normal. Heart size is normal. Bones and chest wall: Ill-defined sclerotic areas scattered in right humeral head and inferior portion of right glenoid is seen, likely representing metastatic disease given patient's history of prostate cancer. Numerous rib lesions also likely present. Overlying soft tissues appear unremarkable. IMPRESSION: 1. ET tube appears in satisfactory position. 2. Congestive changes with pulmonary edema and left greater than right bilateral pleural effusion. Underlying airspace opacities in bilateral lung sanchez also present. No gross pneumothorax. 3. Suggestion of extensive bony metastasis. Dictated by: Chi Park M.D. on 10/23/2018 at 11:43 Chest #3: Radiologist's impression: PROCEDURE: XR CHEST 1V INDICATIONS: picc line placement TECHNIQUE: One view of the chest was acquired. COMPARISON: [facility], , XR CHEST 1V, 10/23/2018, 11:29. FINDINGS: Surgical changes and devices: There is a left upper extremity PICC line with the tip extending into the superior vena cava approximately 4 cm from the cavoatrial junction. Endotracheal tube redemonstrated with the tip approximately 3.6 cm from the faith. A new nasogastric tube is noted extending into the stomach with the tip not included on the current study. Postsurgical changes are also redemonstrated in the mediastinum. Lungs and pleura: There are low lung volumes. Persistent bilateral pleural effusions are demonstrated, moderate on the left with probable loculation and small on the right. There are left basilar opacities consistent with atelectasis or consolidation. There is persistent pulmonary edema which appears increased. No definite pneumothorax. Mediastinum: Mediastinal contours appear prominent likely due to portable supine technique. Heart size is enlarged. Bones and chest wall: No suspicious bony lesions. Overlying soft tissues appear unremarkable. IMPRESSION: 1. New PICC line extends into the superior vena cava. 2. Nasogastric tube extends into the stomach with the tip not included on the current study. 3. Low lung volumes with increased pulmonary edema and persistent bilateral pleural effusions, left greater than right. Left basilar atelectasis or consolidation is also redemonstrated. Dictated by: Luis Schulz M.D. on 10/23/2018 at 13:19 US thora: Radiologist's impression: PROCEDURE: US CHEST COMPARISON: None. INDICATIONS: LOOK TO SEE IF FLUID, MAY NEED THORACENTESIS FINDINGS: No pleural effusion is found, no thoracentesis appears warranted. IMPRESSION: Normal chest ultrasound, no pleural effusion for thoracentesis. Dictated by: Rainer Avila M.D. on 10/23/2018 at 12:35 ECG Data Attestation: I personally reviewed and interpreted this ECG as follows: Prior ECG tracings: available for review MDM Narrative Medical decision making narrative: Actually spoke with Radiology and regards to CT done last evening. See if there any masses or lesions that could be causing his pain. No masses or lesions his were identified. Rainer Avila reviewed the CT for me. Repeat chest x-ray today shows significant pneumonia which is likely causing his pain. He has a therapeutic INR of 2.3. I do not believe him to have PE. Patient really seem to be in quite a bit of pain of tachypneic breathing for 36- 40. He was given pain medication did not seem to help. Was tried on BiPAP but continued to be tachypneic and and pain seem to be in significant respiratory d istress. Long conversation with patient and about intubation and code status. At this time they are both agreeable to intubation and CPR. Patient was intubated. Patient was intubated without any difficulty. Ultrasound does not reveal any sort of fluid. I confirmed again with radiology Dr. Rainer Avila that there is no pleural effusion that could be drained this is more likely to be pneumonia. I have updated Dr. Wright on ultrasound results. Patient initially placed on propofol drip however blood pressure decreased. He was then given IV pushes of Dilaudid and Ativan. Blood pressure improved as propofol was turned down. Also of note patient has gram-negative bacteria. Urine from last evening, covered with Rocephin Critical Care Time Critical Care Time: Yes Total Critical Care Time: 45 Attestation: The high probability of a clinically significant, sudden or life threatening deterioration of the respiratory/cardiovascular system(s) required my full and direct attention, intervention and personal management. The aggregate critical care time was [45] minutes. This time is in addition to time spent performing reported procedures but includes the following: [x] Data Review and interpretation [x] Patient assessment and monitoring of vital signs [x] Documentation [x] Medication orders and management Discharge Plan Departure Patient Disposition: Admitted As Inpatient Clinical Impression: Acute UTI Respiratory failure Qualifiers: Chronicity: acute Respiratory failure complication: unspecified whether with hypoxia or hypercapnia Qualified Code(s): J96.00 - Acute respiratory failure, unspecified whether with hypoxia or hypercapnia Pneumonia Qualifiers: Pneumonia type: due to unspecified organism Laterality: left Lung location: unspecified part of lung Qualified Code(s): J18.9 - Pneumonia, unspecified organism Discharge Date/Time: 10/23/18 13:45 Interventions: ED Discharge Assessment Last Done: 10/23/18 12:58 Admit Date/Time: 10/23/18 12:55 Admit Provider: Danette Wright
[2018-10-23] MEDS: HYDROMORPHONE 2 MG INJ 0.5 MG SUBCUT (10:17)
[2018-10-23] MEDS: HYDROMORPHONE 1 MG INJ IV ×2 (10:38→12:43)
[2018-10-23 10:42] LABS: Add Manual Diff / Slide Review NO; Basophils Absolute Auto 100 /uL (0-100); Basophils Percent Auto 0.4 % (0-2); Eosinophils Absolute Auto 0 /uL (0-450); Hematocrit 43.1 % (41-53); Hemoglobin 15.1 g/dL (13.5-17.5); Lymphocytes Absolute Auto 1200 /uL (1100-4500); Lymphocytes Percent Auto 8.7 % (25-40); Mean Corpuscular Hemoglobin 34.2 PG (26-34); Mean Corpuscular Volume 97.8 fL (80-100); Monocytes Absolute Auto 700 /uL (0-900); Monocytes Percent Auto 5.2 % (3-14); Neutrophils Absolute Auto 12200 /uL (1500-7000); Neutrophils Percent Auto 85.7 % (50-75); Platelet Count 163 X10^3/uL (150-400); Red Blood Cell Count 4.41 X10^6/uL (4.5-5.9); Red Cell Distribution Width 15.8 % (11.6-14.8); White Blood Cell Count 14.2 X10^3/uL (4.5-11.0)
[2018-10-23 10:46] LABS: INR 2.5 (0.9-1.3); Prothrombin Time 28.9 SECONDS (10.1-12.7)
[2018-10-23 10:52] LABS: Alanine Aminotransferase 35 IU/L (21-72); Albumin Globulin Ratio 1.4 (1.0-2.8); Alkaline Phosphatase 87 U/L (38-126); Aspartate Aminotransferase 39 IU/L (17-59); Bilirubin Total 2.2 mg/dL (0.2-1.3); Blood Urea Nitrogen 15 mg/dL (9-20); Calcium 9.1 mg/dL (8.4-10.2); Carbon Dioxide 25 mmol/L (22-32); Chloride 101 mmol/L (98-107); Creatine Kinase 36 U/L (55-170); Estimated Glomerular Filt Rate > 60.0 mL/min (>60); Globulin 2.9 g/dL (1.7-4.1); Glucose 128 mg/dL (80-110); HEMOLYSIS 69 (0-50); Lactate (Lactic Acid) 1.4 mmol/L (0.7-2.1); Lipase 51 U/L (23-300); Potassium 3.8 mmol/L (3.4-5.1); Sodium 137 mmol/L (137-145); Total Protein 6.9 g/dL (6.3-8.2)
[2018-10-23] MEDS: CEFTRIAXONE 1 GM/50 ML FROZ.PIGGY IV (10:55)
--- NOTE | 2018-10-23 10:57 | PC.NURSE ---
RT at bedside setting up BIPAP. Patient resp 35-40 breaths per min maintaining sats in mid 80-90 on NRB. Patient c/o pain on left side of chest with breaths.
[2018-10-23 11:03] LABS: Troponin I 0.021 ng/mL (0.01-0.034)
[2018-10-23 11:07] LABS: Procalcitonin 0.23 ng/mL (<0.5)
[2018-10-23 11:20] LABS: B Type Natriuretic Peptide 120 (<100)
--- NOTE | 2018-10-23 11:23 | PC.NURSE ---
RT, and Two RN at bedside setting up for intubation.20mg IV Etomidate 1124, followed by Succs 100mg IV. Patient bagged by RT. Intubated with size 7.5 tube, 22 at the lip/
[2018-10-23] MEDS: ETOMIDATE 2 MG/ML VIAL 20 MG IV (11:24)
--- NOTE | 2018-10-23 11:30 | DI.RAD.S_ITS ---
PROCEDURE: XR CHEST 1V INDICATIONS: tube placement TECHNIQUE: One view of the chest was acquired. COMPARISON: [facility], CR, XR CHEST 1V, 10/23/2018, 10:10. FINDINGS: Surgical changes and devices: ET tube tip is approximately 2 cm above the faith. Sternotomy wires and prosthetic heart valve are again seen. Lungs and pleura: There is extensive pulmonary vascular congestion. Left greater than right bilateral pleural effusion is seen. No gross pneumothorax. Extensive ill-defined air space opacities are noted scattered in bilateral lung sanchez. Mediastinum: Mediastinal contours appear normal. Heart size is normal. Bones and chest wall: Ill-defined sclerotic areas scattered in right humeral head and inferior portion of right glenoid is seen, likely representing metastatic disease given patient's history of prostate cancer. Numerous rib lesions also likely present. Overlying soft tissues appear unremarkable. IMPRESSION: 1. ET tube appears in satisfactory position. 2. Congestive changes with pulmonary edema and left greater than right bilateral pleural effusion. Underlying airspace opacities in bilateral lung sanchez also present. No gross pneumothorax. 3. Suggestion of extensive bony metastasis. Dictated by: Chi Park M.D. on 10/23/2018 at 11:43 Approved by: Chi Park M.D. on 10/23/2018 at 11:46
[2018-10-23] MEDS: SUCCINYLCHOLINE 200 MG/10 ML VIAL 100 MG IV (11:32)
--- NOTE | 2018-10-23 11:41 | DI.US.S_ITS ---
PROCEDURE: US CHEST COMPARISON: None. INDICATIONS: LOOK TO SEE IF FLUID, MAY NEED THORACENTESIS FINDINGS: No pleural effusion is found, no thoracentesis appears warranted. IMPRESSION: Normal chest ultrasound, no pleural effusion for thoracentesis. Dictated by: Rainer Avila M.D. on 10/23/2018 at 12:35 Approved by: Rainer Avila M.D. on 10/23/2018 at 12:35
[2018-10-23] MEDS: PROPOFOL 1,000 MG/100 ML VIAL 11.102 MG IV (12:15)
[2018-10-23] MEDS: LORazepam 2 MG/ML SYRINGE 1 MG IV (12:43)
--- NOTE | 2018-10-23 12:47 | PC.NURSE ---
DI nurse at bedside setting up for PICC placement.
--- NOTE | 2018-10-23 12:58 | PC.NURSE ---
Report called to Carolina DALE RM 102 when PICC line completed
--- NOTE | 2018-10-23 13:01 | DI.RAD.S_ITS ---
PROCEDURE: XR CHEST 1V INDICATIONS: picc line placement TECHNIQUE: One view of the chest was acquired. COMPARISON: [facility], CR, XR CHEST 1V, 10/23/2018, 11:29. FINDINGS: Surgical changes and devices: There is a left upper extremity PICC line with the tip extending into the superior vena cava approximately 4 cm from the cavoatrial junction. Endotracheal tube redemonstrated with the tip approximately 3.6 cm from the faith. A new nasogastric tube is noted extending into the stomach with the tip not included on the current study. Postsurgical changes are also redemonstrated in the mediastinum. Lungs and pleura: There are low lung volumes. Persistent bilateral pleural effusions are demonstrated, moderate on the left with probable loculation and small on the right. There are left basilar opacities consistent with atelectasis or consolidation. There is persistent pulmonary edema which appears increased. No definite pneumothorax. Mediastinum: Mediastinal contours appear prominent likely due to portable supine technique. Heart size is enlarged. Bones and chest wall: No suspicious bony lesions. Overlying soft tissues appear unremarkable. IMPRESSION: 1. New PICC line extends into the superior vena cava. 2. Nasogastric tube extends into the stomach with the tip not included on the current study. 3. Low lung volumes with increased pulmonary edema and persistent bilateral pleural effusions, left greater than right. Left basilar atelectasis or consolidation is also redemonstrated. Dictated by: Luis Schulz M.D. on 10/23/2018 at 13:19 Approved by: Luis Schulz M.D. on 10/23/2018 at 13:22
[2018-10-23 13:02] LABS: RBC Urine None Seen (0-5/HPF)
[2018-10-23 13:04] LABS: Appearance Urine UA CLOUDY; Bilirubin Urine UA NEGATIVE (NEGATIVE); Color Urine UA YELLOW; Glucose Urine UA NEGATIVE (Negative); Ketones Urine UA TRACE (NEGATIVE); Leukocyte Esterase Urine UA 1+ (NEGATIVE); Nitrite Urine UA NEGATIVE (Negative); Occult Blood Urine UA TRACE-LYSED (Negative); Protein Urine UA 1+ (Negative); Specific Gravity Urine UA 1.015 (1.000-1.035); Urobilinogen Urine UA 0.2 E.U./dL (0.2); pH Urine UA 8.5 (4.5-8.0)
[2018-10-23 13:09] LABS: Bacteria Urine Many (>30); WBC Urine 10-30/HPF (0-5/HPF)
[2018-10-23 13:10] LABS: Culture Indicated Urine Specimen Cultured
[2018-10-23] MEDS: AZITHROMYCIN 500 MG in DEXTROSE 5% IN WATER 250 ML IV (13:59)
--- NOTE | 2018-10-23 15:25 | PM.HP.1 ---
History of Present Illness Date Patient Seen: 10/23/18 Chief complaint: L side pain with deep breath getting worse Narrative: The patient is a 73-year-old male with a history of metastatic prostate cancer, valvular heart disease status post a titanium aortic valve, atrial fibrillation who was in his usual state of health until Tuesday 3 days prior to admission. Patient's significant other who is here with him reports he started complaining of left-sided chest pain. by Tuesday he was short of breath. He was seen and evaluated in the emergency department where chest x-ray was negative. He underwent a chest CT which was unremarkable. The patient was discharged home. He resents return to the emergency department today markedly short of breath. He had a chest x-ray which showed significant pleural effusions with some loculation on the left. Was felt that he had abrupt onset of pneumonia. The patient was in significant respiratory distress and required intubation. Since that time he has been unable to provide any additional history. According to his significant other prostate cancer 1 year ago. He completed 4 months of chemotherapy. His PSA came down from 189 to 1.1. They came up from [place] to celebrate his 1 year anniversary. There at the [facility] to a festival. The patient has known metastatic disease. he has been managed with Zytiga and according to his significant other has not required any follow-up studies. He has been doing well until this admission. Family history is unobtainable as the patient is intubated and sedated. Social history unobtainable. Patient History Medical History (Updated 10/23/18 @ 15:33 by Danette Wright MD) Hyperlipidemia (Acute) Hypertension (Acute) Atrial fibrillation (Acute) Prostate cancer (Acute) Valvular heart disease (Acute) Surgical History (Updated 10/23/18 @ 15:33 by Danette Wright MD) H/O abdominal surgery (Acute) History of aortic aneurysm repair (Acute) 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 (Acute) Social History household members: significant other and friend(s) Smoking Status: Former smoker Family & Social History Social History: household members significant other,friend(s) Safety & Behavioral: Feels Safe in Current Yes Environment Been Physically Hurt or No Threatened By a Person Suicidal Ideation Description None Suicide Plan Description No Plan Tobacco & Substance use: Smoking Status Former smoker alcohol intake frequency 0-2 drinks per day Substance Use Type does not use Meds Home Medications Medication Instructions Recorded Confirmed Type doxycycline hyclate 100 mg PO BID #14 cap 10/22/18 10/23/18 Rx Calcium 1 tab PO TID 10/23/18 10/23/18 History One-A-Day Men's Multivitamin 1 tab PO DAILY 10/23/18 10/23/18 History abiraterone [Zytiga] 1,000 mg PO DAILY 10/23/18 10/23/18 History amiodarone 400 mg PO DAILY 10/23/18 10/23/18 History aspirin 81 mg PO BEDTIME 10/23/18 10/23/18 History atorvastatin [Lipitor] 10 mg PO DAILY 10/23/18 10/23/18 History garlic 1 tab PO QAM 10/23/18 10/23/18 History metoprolol succinate [Toprol XL] 100 mg PO QPM 10/23/18 10/23/18 History omega-3 acid ethyl esters [Lovaza] 1 cap PO BID 10/23/18 10/23/18 History pantoprazole 40 mg PO DAILY 10/23/18 10/23/18 History prednisone 5 mg PO BID 10/23/18 10/23/18 History ramipril [Altace] 5 mg PO DAILY 10/23/18 10/23/18 History warfarin 1 dose PO QPM 10/23/18 10/23/18 History Review of Systems Review of Systems unobtainable due to mental status Exam Vital Signs (past 8 hours): - 10/23/18 11:25 10/23/18 11:45 10/23/18 11:49 Temperature Pulse Rate 74 72 75 Respiratory Rate 40 H 14 14 Blood Pressure Blood Pressure [Left Arm] 175/130 H 106/52 L 106/52 L Pulse Oximetry 88 L 99 100 10/23/18 12:00 10/23/18 12:06 10/23/18 12:30 Temperature Pulse Rate 76 75 72 Respiratory Rate 14 14 14 Blood Pressure Blood Pressure [Left Arm] 78/43 L 88/64 L Pulse Oximetry 96 100 96 10/23/18 13:15 10/23/18 14:58 Temperature 98.0 F Pulse Rate 82 85 Respiratory Rate 20 20 Blood Pressure 88/40 L Blood Pressure [Left Arm] 109/23 L Pulse Oximetry 96 100 Fraction of Inspired Oxygen 65 Oxygen Delivery Method Mechanical Ventilation Oxygen Flow Rate 15 Narrative Exam Narrative: Sedated male intubated and unresponsive HEENT: Normocephalic atraumatic sclerae anicteric oropharynx he is intubated Lungs: Decreased breath sounds, scattered crackles on the left Cardiac exam: Regular rate and rhythm normal S1-S2 positive click 3/6 systolic ejection murmur Chest: Midline surgical incision healed without erythema Abdomen: Soft nontender nondistended, no hepatosplenomegaly Extremity: No edema Neuro exam: Patient is sedated on the ventilator Skin exam: No rashes lesions noted Objective Labs Result Diagrams: 10/23/18 10:25 10/23/18 10:25 Labs: Laboratory Results - last 24 hr 10/23/18 10/23/18 10/23/18 10:25 10:25 10:25 WBC 14.2 H RBC 4.41 L Hgb 15.1 Hct 43.1 MCV 97.8 MCH 34.2 H MCHC 35.0 RDW 15.8 H Plt Count 163 Neut % (Auto) 85.7 H Lymph % (Auto) 8.7 L Gordon % (Auto) 5.2 Eos % (Auto) 0.0 L Baso % (Auto) 0.4 Neut # (Auto) 31294 H Lymph # (Auto) 1200 Gordon # (Auto) 700 Eos # (Auto) 0 Baso # (Auto) 100 PT INR Sodium 137 Potassium 3.8 Chloride 101 Carbon Dioxide 25 BUN 15 Creatinine 0.60 L Estimated GFR > 60.0 BUN/Creatinine Ratio 25.0 H Glucose 128 H Lactate Calcium 9.1 Total Bilirubin 2.2 H AST 39 ALT 35 Alkaline Phosphatase 87 Total Creatine Kinase 36 L CK-MB (CK-2) TNP CK-MB (CK-2) Rel Index TNP Troponin I 0.021 B-Natriuretic Peptide 120 H Total Protein 6.9 Albumin 4.0 Globulin 2.9 Albumin/Globulin Ratio 1.4 Lipase 51 Procalcitonin 0.23 Urine Color Urine Appearance Urine pH Ur Specific [place] Urine Protein Urine Glucose (UA) Urine Ketones Urine Occult Blood Urine Nitrate Urine Bilirubin Urine Urobilinogen Ur Leukocyte Esterase Urine RBC Urine WBC Urine Bacteria Ur Culture Indicated? 10/23/18 10/23/18 10/23/18 10:25 10:25 11:45 WBC RBC Hgb Hct MCV MCH MCHC RDW Plt Count Neut % (Auto) Lymph % (Auto) [place] % (Auto) Eos % (Auto) Baso % (Auto) Neut # (Auto) Lymph # (Auto) Gordon # (Auto) Eos # (Auto) Baso # (Auto) PT 28.9 H INR 2.5 H Sodium Potassium Chloride Carbon Dioxide BUN Creatinine Estimated GFR BUN/Creatinine Ratio Glucose Lactate 1.4 Calcium Total Bilirubin AST ALT Alkaline Phosphatase Total Creatine Kinase CK-MB (CK-2) CK-MB (CK-2) Rel Index Troponin I B-Natriuretic Peptide Total Protein Albumin Globulin Albumin/Globulin Ratio Lipase Procalcitonin Urine Color Yellow Urine Appearance Cloudy Urine pH 8.5 H Ur Specific [place] 1.015 Urine Protein 1+ H Urine Glucose (UA) Negative Urine Ketones Trace H Urine Occult Blood Trace-lysed Urine Nitrate Negative Urine Bilirubin Negative Urine Urobilinogen 0.2 Ur Leukocyte Esterase 1+ H Urine RBC None seen Urine WBC 10-30/hpf H D Urine Bacteria Many (>30) H Ur Culture Indicated? Specimen cultured Assessment & Plan (1) Acute respiratory failure with hypoxia: Problem details: Patient presents with acute hypoxic respiratory failure, present on admission secondary to community-acquired pneumonia. Patient also has metastatic prostate cancer. He is now intubated. He will be treated with ceftriaxone and azithromycin. He will continue on his outpatient prednisone for his prostate cancer. Current visit: Yes Status: Acute (2) Community acquired pneumonia: Problem details: Community-acquired pneumonia, present on admission. Will continue IV antibiotics. Will re-evaluate x-ray to rule out the possibility of a loculated effusion, empyema which would require surgical intervention. Current visit: Yes Status: Acute (3) Prostate cancer metastatic to bone: Problem details: Prostate cancer, metastatic, present on admission. Will continue Zytiga and prednisone. Current visit: No Status: Acute (4) History of aortic valve replacement: Problem details: History of aortic valve replacement, present on admission, will continue his metoprolol ramipril and Coumadin. Current visit: Yes Status: Acute (5) Paroxysmal atrial fibrillation: Problem details: Paroxysmal atrial fibrillation, present on admission continue metoprolol, and Coumadin Current visit: Yes Status: Acute (6) Hyperlipidemia: Problem details: Hyperlipidemia, present on admission, chronic, continue statin Current visit: Yes Status: Acute Assessment & Plan narrative: Patient is critically 60 minutes occurred critical care time was spent with his patient. Discussed his code status with his daughter who is his power of litigation attorney. He is a full code at this time but would not want continued support if he was deemed to be terminal.
--- NOTE | 2018-10-23 15:25 | PC.NURSE ---
PT ARRIVED FROM ED - INTUBATED AND LIGHTLY SEDATED , PICC LINE PATENT, IVF INFUSING WELL PROPOFOL, JIMENES PATENT - GEORGE EATON AT BEDSIDE
--- NOTE | 2018-10-23 15:33 | P.HP_ITS ---
History of Present Illness Date Patient Seen: 10/23/18 Chief complaint: L side pain with deep breath getting worse Narrative: The patient is a 73-year-old male with a history of metastatic prostate cancer, valvular heart disease status post a titanium aortic valve, atrial fibrillation who was in his usual state of health until Tuesday 3 days prior to admission. Patient's significant other who is here with him reports he started complaining of left-sided chest pain. by Tuesday he was short of breath. He was seen and evaluated in the emergency department where chest x-ray was negative. He underwent a chest CT which was unremarkable. The patient was discharged home. He resents return to the emergency department today markedly short of breath. He had a chest x-ray which showed significant pleural effu sions with some loculation on the left. Was felt that he had abrupt onset of pneumonia. The patient was in significant respiratory distress and required intubation. Since that time he has been unable to provide any additional history. According to his significant other prostate cancer 1 year ago. He completed 4 months of chemotherapy. His PSA came down from 189 to 1.1. They came up from [place] to celebrate his 1 year anniversary. There at the [facility] to a festival. The patient has known metastatic disease. he has been managed with Zytiga and according to his significant other has not required any follow-up studies. He has been doing well until this admission. Family his tory is unobtainable as the patient is intubated and sedated. Social history unobtainable. Patient History Medical History (Updated 10/23/18 @ 15:33 by Danette Wright MD) Hyperlipidemia (Acute) Hypertension (Acute) Atrial fibrillation (Acute) Prostate cancer (Acute) Valvular heart disease (Acute) Surgical History (Updated 10/23/18 @ 15:33 by Danette Wright MD) H/O abdominal surgery (Acute) History of aortic aneurysm repair (Acute) 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 (Acute) Social History household members: significant other and friend(s) Smoking Status: Former smoker Family & Social History Social History: household members significant other,friend(s) Safety & Behavioral: Feels Safe in Current Yes Environment Been Physically Hurt or No Threatened By a Person Suicidal Ideation Description None Suicide Plan Description No Plan Tobacco & Substance use: Smoking Status Former smoker alcohol intake frequency 0-2 drinks per day Substance Use Type does not use Meds Home Medications Medication Instructions Recorded Confirmed Type doxycycline hyclate 100 mg PO BID #14 cap 10/22/18 10/23/18 Rx Calcium 1 tab PO TID 10/23/18 10/23/18 History One-A-Day Men's Multivitamin 1 tab PO DAILY 10/23/18 10/23/18 History abiraterone [Zytiga] 1,000 mg PO DAILY 10/23/18 10/23/18 History amiodarone 400 mg PO DAILY 10/23/18 10/23/18 History aspirin 81 mg PO BEDTIME 10/23/18 10/23/18 History atorvastatin [Lipitor] 10 mg PO DAILY 10/23/18 10/23/18 History garlic 1 tab PO QAM 10/23/18 10/23/18 History metoprolol succinate [Toprol XL] 100 mg PO QPM 10/23/18 10/23/18 History omega-3 acid ethyl esters [Lovaza] 1 cap PO BID 10/23/18 10/23/18 History pantoprazole 40 mg PO DAILY 10/23/18 10/23/18 History prednisone 5 mg PO BID 10/23/18 10/23/18 History ramipril [Altace] 5 mg PO DAILY 10/23/18 10/23/18 History warfarin 1 dose PO QPM 10/23/18 10/23/18 History Review of Systems Review of Systems unobtainable due to mental status Exam Vital Signs (past 8 hours): - 10/23/18 11:25 10/23/18 11:45 10/23/18 11:49 Temperature Pulse Rate 74 72 75 Respiratory Rate 40 H 14 14 Blood Pressure Blood Pressure [Left Arm] 175/130 H 106/52 L 106/52 L Pulse Oximetry 88 L 99 100 10/23/18 12:00 10/23/18 12:06 10/23/18 12:30 Temperature Pulse Rate 76 75 72 Respiratory Rate 14 14 14 Blood Pressure Blood Pressure [Left Arm] 78/43 L 88/64 L Pulse Oximetry 96 100 96 10/23/18 13:15 10/23/18 14:58 Temperature 98.0 F Pulse Rate 82 85 Respiratory Rate 20 20 Blood Pressure 88/40 L Blood Pressure [Left Arm] 109/23 L Pulse Oximetry 96 100 Fraction of Inspired Oxygen 65 Oxygen Delivery Method Mechanical Ventilation Oxygen Flow Rate 15 Narrative Exam Narrative: Sedated male intubated and unresponsive HEENT: Normocephalic atraumatic sclerae anicteric oropharynx he is intubated Lungs: Decreased breath sounds, scattered crackles on the left Cardiac exam: Regular rate and rhythm normal S1-S2 positive click 3/6 systolic ejection murmur Chest: Midline surgical incision healed without erythema Abdomen: Soft nontender nondistended, no hepatosplenomegaly Extremity: No edema Neuro exam: Patient is sedated on the ventilator Skin exam: No rashes lesions noted Objective Labs Result Diagrams: 10/23/18 10:25 10/23/18 10:25 Labs: Laboratory Results - last 24 hr 10/23/18 10/23/18 10/23/18 10:25 10:25 10:25 WBC 14.2 H RBC 4.41 L Hgb 15.1 Hct 43.1 MCV 97.8 MCH 34.2 H MCHC 35.0 RDW 15.8 H Plt Count 163 Neut % (Auto) 85.7 H Lymph % (Auto) 8.7 L [place] % (Auto) 5.2 Eos % (Auto) 0.0 L Baso % (Auto) 0.4 Neut # (Auto) 47650 H Lymph # (Auto) 1200 [place] # (Auto) 700 Eos # (Auto) 0 Baso # (Auto) 100 PT INR Sodium 137 Potassium 3.8 Chloride 101 Carbon Dioxide 25 BUN 15 Creatinine 0.60 L Estimated GFR > 60.0 BUN/Creatinine Ratio 25.0 H Glucose 128 H Lactate Calcium 9.1 Total Bilirubin 2.2 H AST 39 ALT 35 Alkaline Phosphatase 87 Total Creatine Kinase 36 L CK-MB (CK-2) TNP CK-MB (CK-2) Rel Index TNP Troponin I 0.021 B-Natriuretic Peptide 120 H Total Protein 6.9 Albumin 4.0 Globulin 2.9 Albumin/Globulin Ratio 1.4 Lipase 51 Procalcitonin 0.23 Urine Color Urine Appearance Urine pH Ur Specific [place] Urine Protein Urine Glucose (UA) Urine Ketones Urine Occult Blood Urine Nitrate Urine Bilirubin Urine Urobilinogen Ur Leukocyte Esterase Urine RBC Urine WBC Urine Bacteria Ur Culture Indicated? 10/23/18 10/23/18 10/23/18 10:25 10:25 11:45 WBC RBC Hgb Hct MCV MCH MCHC RDW Plt Count Neut % (Auto) Lymph % (Auto) [place] % (Auto) Eos % (Auto) Baso % (Auto) Neut # (Auto) Lymph # (Auto) [place] # (Auto) Eos # (Auto) Baso # (Auto) PT 28.9 H INR 2.5 H Sodium Potassium Chloride Carbon Dioxide BUN Creatinine Estimated GFR BUN/Creatinine Ratio Glucose Lactate 1.4 Calcium Total Bilirubin AST ALT Alkaline Phosphatase Total Creatine Kinase CK-MB (CK-2) CK-MB (CK-2) Rel Index Troponin I B-Natriuretic Peptide Total Protein Albumin Globulin Albumin/Globulin Ratio Lipase Procalcitonin Urine Color Yellow Urine Appearance Cloudy Urine pH 8.5 H Ur Specific [place] 1.015 Urine Protein 1+ H Urine Glucose (UA) Negative Urine Ketones Trace H Urine Occult Blood Trace-lysed Urine Nitrate Negative Urine Bilirubin Negative Urine Urobilinogen 0.2 Ur Leukocyte Esterase 1+ H Urine RBC None seen Urine WBC 10-30/hpf H D Urine Bacteria Many (>30) H Ur Culture Indicated? Specimen cultured Assessment & Plan (1) Acute respiratory failure with hypoxia: Problem details: Patient presents with acute hypoxic respiratory failure, present on admission secondary to community-acquired pneumonia. Patient also has metastatic prostate cancer. He is now intubated. He will be treated with ceftriaxone and azithromycin. He will continue on his outpatient prednisone for his prostate c ancer. Current visit: Yes Status: Acute (2) Community acquired pneumonia: Problem details: Community-acquired pneumonia, present on admission. Will continue IV antibiotics. Will re-evaluate x-ray to rule out the possibility of a loculated effusion, empyema which would require surgical intervention. Current visit: Yes Status: Acute (3) Prostate cancer metastatic to bone: Problem details: Prostate cancer, metastatic, present on admission. Will continue Zytiga and prednisone. Current visit: No Status: Acute (4) History of aortic valve replacement: Problem details: History of aortic valve replacement, present on admission, will continue his metoprolol ramipril and Coumadin. Current visit: Yes Status: Acute (5) Paroxysmal atrial fibrillation: Problem details: Paroxysmal atrial fibrillation, present on admission continue metoprolol, and Coumadin Current visit: Yes Status: Acute (6) Hyperlipidemia: Problem details: Hyperlipidemia, present on admission, chronic, continue statin Current visit: Yes Status: Acute Assessment & Plan narrative: Patient is critically 60 minutes occurred critical care time was spent with his patient. Discussed his code status with his daughter who is his power of compliance attorney. He is a full code at this time but would not want continued support if he was deemed to be terminal.
--- NOTE | 2018-10-23 16:00 | RT ---
1445 Attempted ABG on PT. Due to low BP unable to feel radial or brachial pulse. RN increased fluids and will try again in 1 hr. BC/RT
[2018-10-23 16:20] LABS: HCO3 ABG 18 mmol/L (22-26); Oxygen Saturation ABG 95 % (95-100); PCO2 ABG 30.5 mmHg (35-45); PO2 ABG 75 mmHg (80-100); TCO2 ABG 19 mmol/L (21-31); pH ABG 7.39 (7.35-7.45)
[2018-10-23] MEDS: LACTATED RINGERS 1,000 ML 100 ML IV (16:20)
[2018-10-23 16:21] LABS: Fractionated Inspired Oxygen 65
[2018-10-23] MEDS: SODIUM CHLORIDE 0.9% 500 ML 1000 ML IV (17:14)
[2018-10-23] MEDS: MORPHINE 15 MG/ML VIAL 50 MG in DEXTROSE 5 % IN WATER 50 ML IV (17:38)
[2018-10-23] MEDS: MIDAZOLAM 50 MG in DEXTROSE 5% IN WATER 250 ML 10 ML IV (17:38)
[2018-10-23] MEDS: AMIODARONE 200 MG TABLET 400 MG PO (17:50)
[2018-10-23] MEDS: ASPIRIN 81 MG TAB PO (17:50)
[2018-10-23] MEDS: WARFARIN 2 MG TABLET 4 MG PO (17:50)
[2018-10-23 18:37] LABS: Lactate (Lactic Acid) 3.7 mmol/L (0.7-2.1)
[2018-10-23] MEDS: LACTATED RINGERS 1,000 ML 1000 ML IV (18:50)
[2018-10-23 18:58] LABS: Add Manual Diff / Slide Review NO; Basophils Absolute Auto 100 /uL (0-100); Basophils Percent Auto 0.4 % (0-2); Eosinophils Absolute Auto 0 /uL (0-450); Hematocrit 40.4 % (41-53); Hemoglobin 13.7 g/dL (13.5-17.5); Lymphocytes Absolute Auto 1200 /uL (1100-4500); Lymphocytes Percent Auto 7.5 % (25-40); Mean Corpuscular Hemoglobin 33.9 PG (26-34); Mean Corpuscular Volume 99.7 fL (80-100); Monocytes Absolute Auto 800 /uL (0-900); Monocytes Percent Auto 5.3 % (3-14); Neutrophils Absolute Auto 14000 /uL (1500-7000); Neutrophils Percent Auto 86.8 % (50-75); Platelet Count 154 X10^3/uL (150-400); Red Blood Cell Count 4.06 X10^6/uL (4.5-5.9); Red Cell Distribution Width 15.7 % (11.6-14.8); White Blood Cell Count 16.2 X10^3/uL (4.5-11.0)
--- NOTE | 2018-10-23 18:58 | P.EN_ITS ---
Date Patient Seen: 10/23/18 Called to see patient for persistent hypotension patient is tachycardic and hypotensive. Systolic blood pressure 78. He is sedated on Versed and morphine. He is no longer on the propofol. A repeat lactate was obtained and is 3.7. The patient remains hypotensive. He was started on a sepsis protocol. Blood cultures have been obtained, repeat lactate will be ordered in 4 hours, he is getting 30 cc/kilogram of lactated Ring[place]. His antibiotics will be changed to Zosyn and levofloxacin. Patient received ceftriaxone and azithromycin earlier. He will be started on IV hydrocortisone as he is chronically on prednisone. Once IV fluids have been administered he will be started on pressors if his blood pressure remains hypotensive. Repeat ABGs are pending. Will repeat his chest x-ray. Given his ventilation concern regarding ARDS. Will repeat chest x-ray to review. patient is a full code. However he has an advanced directive which states it is futile not to prolong his care. His daughter is in route from [place] and anticipates arriving at midnight this evening. 30 minutes spent at the bedside caring for this critically ill patient.
[2018-10-23 19:02] LABS: Alanine Aminotransferase 28 IU/L (21-72); Albumin 2.6 g/dL (3.5-5.0); Albumin Globulin Ratio 1.1 (1.0-2.8); Alkaline Phosphatase 87 U/L (38-126); Aspartate Aminotransferase 32 IU/L (17-59); BUN Creatinine Ratio 11.8 (6-22); Bilirubin Total 1.4 mg/dL (0.2-1.3); Blood Urea Nitrogen 20 mg/dL (9-20); Calcium 8.4 mg/dL (8.4-10.2); Carbon Dioxide 20 mmol/L (22-32); Chloride 105 mmol/L (98-107); Estimated Glomerular Filt Rate 39.5 mL/min (>60); Globulin 2.3 g/dL (1.7-4.1); Glucose 108 mg/dL (80-110); HEMOLYSIS < 15 (0-50); Sodium 136 mmol/L (137-145); Total Protein 4.9 g/dL (6.3-8.2)
[2018-10-23] MEDS: HYDROCORTISONE 100 MG/2 ML VIAL IV (19:09)
[2018-10-23] MEDS: levoFLOXacin 750 MG/150 ML PIGGYBACK 100 MG IV (19:13)
[2018-10-23] MEDS: LACTATED RINGERS 2,000 ML 1000 ML IV (19:14)
[2018-10-23 19:45] LABS: Procalcitonin 19.12 ng/mL (<0.5)
[2018-10-23] MEDS: POTASSIUM CHLORIDE 80 MEQ in SODIUM CHLORIDE 0.9% 1,000 ML 130 ML IV (19:47)
[2018-10-23 20:08] LABS: Creatine Kinase 84 U/L (55-170)
[2018-10-23 20:09] LABS: Troponin I 0.125 ng/mL (0.01-0.034)
[2018-10-23] MEDS: ePHEDrine 50 MG/ML VIAL 10 MG IV ×4 (20:10→20:53)
[2018-10-23] MEDS: ROCURONIUM 50 MG/5 ML VIAL 20 MG IV (20:15)
[2018-10-23 20:22] LABS: Reflexed Lactate in 2 Hours Y
[2018-10-23] MEDS: ePHEDrine 50 MG/ML VIAL 15 MG IV (20:32)
--- NOTE | 2018-10-23 20:47 | DI.RAD.S_ITS ---
PROCEDURE: XR CHEST 1V INDICATIONS: check for central line placement TECHNIQUE: One view of the chest was acquired. COMPARISON: [facility], CR, XR CHEST 1V, 10/23/2018, 11:29. [facility], CR, XR CHEST 1V, 10/23/2018, 19:16. [facility], CR, XR CHEST 1V, 10/23/2018, 13:09. FINDINGS: Surgical changes and devices: Endotracheal tube tip projects approximately 5.2 cm above the faith. Nasogastric tube extends below the level of the diaphragm with the distal side-port noted near the gastroesophageal junction. Left upper extremity PICC with the tip projecting near the lower SVC. Right central venous catheter with tip projecting in the lower SVC, adjacent to the tip of a left PICC. Multiple median sternotomy wires are intact. Changes of prior valvular repair. Lungs and pleura: There is now complete opacification of the left hemithorax with mild rightward shift of the mediastinal structures. Dense atherosclerotic calcifications of the thoracic aorta. Persistent patchy consolidations scattered throughout the right hemithorax. Small right pleural effusion. No pneumothorax. No pleural effusions or pneumothorax. Mediastinum: Cardiomediastinal contour is obscured by opacification of the left hemithorax. Bones and chest wall: Scattered sclerotic lesions seen throughout the bilateral ribs, bilateral scapula, and proximal left humerus suggesting sclerotic osseous metastases. Overlying soft tissues appear unremarkable. IMPRESSION: 1. Support equipment as detailed above. 2. Complete opacification of the left hemithorax. 3. Persistent patchy consolidations involving the right hemithorax, not significantly changed. 4. Extensive osseous metastases. Dictated by: Jose Fernandez M.D. on 10/23/2018 at 22:25 Approved by: Jose Fernandez M.D. on 10/23/2018 at 22:34
[2018-10-23] MEDS: NOREPINEPHRINE 4 MG in DEXTROSE 5% IN WATER 250 ML 30 ML IV (20:50)
[2018-10-23] MEDS: ALBUTEROL 2.5 MG/3 ML NEB (ADULT) INH (21:04)
[2018-10-23] MEDS: PIPERACILLIN-TAZO 4.5 GM/100 ML FROZ.PIGGY IV (21:27)
[2018-10-23] MEDS: FAMOTIDINE 20 MG/50 ML PIGGYBACK 200 MG IV (22:02)
--- NOTE | 2018-10-23 22:44 | PC.NURSE ---
1699 - Patient continues to be hypotensive. Dr. Wright notified and gave orders for IV bolus and to change propofol gtt to versed and morphine gtts. 1814 - Patient's blood pressure continues to be low with MAP's <60. Also tachycardic in the 110's. Patient noted to have grimace on face, but is otherwise sedated. Respirations 31 on ventilator. Noted to have 100ml urine in decker from before admission. Dr. Wright notified of status and stated she would come see patient. 1929 - Dr. Wright and Nurse Practitioner Rainer at patient's bedside. RT also present. Labs drawn and blood pressure now not reading on machine. Attempted multiple methods to get blood pressure. Also started 3L lactated ringer boluses for sepsis. IV antibiotics and steroids ordered as well. 1999 Dr. Matute from anesthesiology arrived to place triple lumen central line and art line per orders. Physician placed central line and CVP noted to be 11. Physician attempted multiple times to place ART line without success. Blood pressure now reading on machine. Patient noted to be diaphoretic, blood glucose checked and noted to be 106. Nurse practitioner has been present throughout and is aware that ART line was unsuccessful. Levophed gtt initiated after LR boluses completed. 2200 - Blood pressure remains low, but map is >60. Nurse practitioner aware of all updates. Patient resting peacefully. Patient's has not tolerated anything, but minimal position changes this shift.
[2018-10-23 22:58] LABS: Lactate (Lactic Acid) 7.7 mmol/L (0.7-2.1); Magnesium 1.5 mg/dL (1.6-2.3); Phosphorous 3.6 mg/dL (2.3-3.7)
[2018-10-23 23:00] LABS: BUN Creatinine Ratio 11.6 (6-22); Blood Urea Nitrogen 22 mg/dL (9-20); Calcium 8.6 mg/dL (8.4-10.2); Carbon Dioxide 17 mmol/L (22-32); Chloride 106 mmol/L (98-107); Estimated Glomerular Filt Rate 34.7 mL/min (>60); Glucose 115 mg/dL (80-110); HEMOLYSIS < 15 (0-50); Potassium 3.3 mmol/L (3.4-5.1); Sodium 136 mmol/L (137-145)
[2018-10-23 23:02] LABS: Fractionated Inspired Oxygen 75; HCO3 ABG 15 mmol/L (22-26); Oxygen Saturation ABG 94 % (95-100); PCO2 ABG 29.8 mmHg (35-45); PO2 ABG 75 mmHg (80-100); TCO2 ABG 16 mmol/L (21-31)
[2018-10-23 23:03] LABS: pH ABG 7.32 (7.35-7.45)
[2018-10-23 23:11] LABS: Troponin I 0.136 ng/mL (0.01-0.034)
[2018-10-23] MEDS: ALBUTEROL/IPRATROPIUM 3 ML AMPUL INH (23:36)
[2018-10-24] VITALS (15 sets, daily range): BP systolic 85–120; BP diastolic 39–68; PULSE 58–101; RESP 22–27; TEMP 36.6–36.9; O2SAT 92–96
[2018-10-24] MEDS: HYDROCORTISONE 100 MG/2 ML VIAL IV (00:06)
[2018-10-24] MEDS: PIPERACILLIN-TAZO 4.5 GM/100 ML FROZ.PIGGY IV ×2 (00:14→06:24)
[2018-10-24 00:19] LABS: Fractionated Inspired Oxygen 100; HCO3 ABG 14 mmol/L (22-26); Oxygen Saturation ABG 95 % (95-100); PCO2 ABG 38.1 mmHg (35-45); PO2 ABG 94 mmHg (80-100); TCO2 ABG 15 mmol/L (21-31); pH ABG 7.17 (7.35-7.45)
[2018-10-24 00:23] LABS: Adenovirus Not Detected (Not Detect); Coronavirus 229E Not Detected (Not Detect); Coronavirus HKU1 Not Detected (Not Detect); Coronavirus NL 63 Not Detected (Not Detect); Coronavirus OC43 Not Detected (Not Detect); Human Metapneumovirus Not Detected (Not Detect); Human Rhinovirus/Enterovirus Not Detected (Not Detect)
[2018-10-24 00:24] LABS: Bordetella pertussis Not Detected (Not Detect); Chlamydophila pneumoniae Not Detected (Not Detect); Influenza A Not Detected (Not Detect); Influenza B Not Detected (Not Detect); Mycoplasma pneumoniae Not Detected (Not Detect); Parainfluenza Virus 1 Not Detected (Not Detect); Parainfluenza Virus 2 Not Detected (Not Detect); Parainfluenza Virus 3 Not Detected (Not Detect); Parainfluenza Virus 4 Not Detected (Not Detect); Respiratory Syncytial Virus Not Detected (Not Detect)
[2018-10-24 00:43] LABS: Reflexed Lactate in 2 Hours Y
[2018-10-24] MEDS: SODIUM BICARB 8.4% SYRINGE 50 MEQ IV (00:54)
[2018-10-24] MEDS: MAGNESIUM SULFATE 2 GM/50 ML PIGGYBACK IV (00:54)
[2018-10-24] MEDS: NOREPINEPHRINE 4 MG in DEXTROSE 5% IN WATER 250 ML 56.3 ML IV ×2 (01:12→05:35)
[2018-10-24 02:26] LABS: Lactate (Lactic Acid) 7.9 mmol/L (0.7-2.1)
[2018-10-24] MEDS: ALBUTEROL/IPRATROPIUM 3 ML AMPUL INH ×4 (02:44→15:19)
--- NOTE | 2018-10-24 02:53 | PM.EVENT ---
Date Patient Seen: 10/24/18 Time Patient Seen: 02:00 This is a 73-year-old male patient presently admitted to the ICU with a history of hyperlipidemia, hypertension, atrial fibrillation, aortic valve replacement, and prostate CA with bony metastases who is admitted with pneumonia and sepsis to the ICU. The patient's and daughter are present at bedside. Reviewed with the patient's present status including sepsis, severe pneumonia, hypotension, acute renal failure and acidosis. Presented the information to [place] the family to decide on plan of care. Recommend the patient be transferred to a higher level care due to his severity of illness. The patient's and daughter have requested time to consider the information. At this time the patient is able to maintain a MAP greater than 65 on 15 mcg norepinephrine. Patient has had magnesium replaced and is currently having potassium replaced with total IV fluid approximately 260 cc/hour. CVP is stable at 12. The patient remains anuric bleed to be in acute kidney injury related to sepsis and hypotension. His baseline creatinine is 0.6 and most recent creatinine 1.9. Most recent ABG obtained just before midnight revealed a pH of 7.17, pCO2 of 38.1, PO2 of 94, bicarb of 14 with a base excess of -15. The patient received 1 amp of bicarb over 1 hour with modest improvement in blood pressure. No change in urine output. 0230: Spoke with Nephrology, Dr. Jordan Russell with [facility] ([phone]), and review the case seeking advice on any further interventions that may be taken locally while family is deciding whether the transfer. Dr. Russell felt the only additional course of action would be to start a bicarbonate drip. Order entered for sodium bicarbonate infusion. Critical care time: 45 minutes in direct patient care, conferring with the patient's family, performing evaluations re-evaluations and obtaining consultations.
--- NOTE | 2018-10-24 03:05 | P.EN_ITS ---
Date Patient Seen: 10/24/18 Time Patient Seen: 02:00 This is a 73-year-old male patient presently admitted to the ICU with a history of hyperlipidemia, hypertension, atrial fibrillation, aortic valve replacement, and prostate CA with bony metastases who is admitted with pneumonia and sepsis to the ICU. The patient's and daughter are present at bedside. Reviewed with the patient's present status including sepsis, severe pneumonia, hypotension, acute renal failure and acidosis. Presented the information to [place] the family to gwendolyn rodriguez on plan of care. Recommend the patient be transferred to a higher level care due to his severity of illness. The patient's and daughter have requested time to consider the information. At this time the patient is able to maintain a MAP greater than 65 on 15 mcg norepinephrine. Patient has had magnesium replaced and is currently having potassium replaced with total IV fluid approximately 260 cc/hour. CVP is stable at 12. The patient remains anuric bleed to be in acute kidney injury related to sepsis and hypotension. His baseline creatinine is 0.6 and most recent creatinine 1.9. Most recent ABG obtained just before midnight revealed a pH of 7.17, pCO2 of 38.1, PO2 of 94, bicarb of 14 with a base excess of -15. The patient received 1 amp of bicarb over 1 hour with modest improvement in blood pressure. No change in urine output. 0230: Spoke with Nephrology, Dr. Jordan Russell with [facility] ([phone]), and review the case seeking advice on any further interventions that may be taken locally while family is deciding whether the transfer. Dr. Russell felt the only additional course of action would be to start a bicarbonate drip. Order entered for sodium bicarbonate infusion. Critical care time: 45 minutes in direct patient care, conferring with the patient's family, performing evaluations re-evaluations and obtaining consultations.
[2018-10-24 03:12] LABS: Fractionated Inspired Oxygen 100; HCO3 ABG 14 mmol/L (22-26); Oxygen Saturation ABG 93 % (95-100); PCO2 ABG 39.2 mmHg (35-45); PO2 ABG 87 mmHg (80-100); TCO2 ABG 15 mmol/L (21-31); pH ABG 7.15 (7.35-7.45)
[2018-10-24] MEDS: DEXTROSE 5% IV (03:44)
[2018-10-24] MEDS: SODIUM BICARB IV (03:44)
[2018-10-24] MEDS: WATER IV (03:44)
[2018-10-24 04:15] LABS: Reflexed Lactate in 2 Hours Y
[2018-10-24 05:13] LABS: INR 3.6 (0.9-1.3)
[2018-10-24 05:16] LABS: Hematocrit 41.7 % (41-53); Hemoglobin 13.6 g/dL (13.5-17.5); Mean Corpuscular HGB Conc 32.7 % (30-36); Mean Corpuscular Hemoglobin 33.3 PG (26-34); Mean Corpuscular Volume 101.9 fL (80-100); Platelet Count 172 X10^3/uL (150-400); Red Blood Cell Count 4.09 X10^6/uL (4.5-5.9); Red Cell Distribution Width 16.2 % (11.6-14.8)
[2018-10-24] MEDS: ALBUTEROL 2.5 MG/3 ML NEB (ADULT) INH (05:17)
[2018-10-24 05:18] LABS: Add Manual Diff / Slide Review YES; Alanine Aminotransferase 97 IU/L (21-72); Albumin 2.4 g/dL (3.5-5.0); Alkaline Phosphatase 155 U/L (38-126); Aspartate Aminotransferase 164 IU/L (17-59); BUN Creatinine Ratio 10.9 (6-22); Bilirubin Total 1.3 mg/dL (0.2-1.3); Blood Urea Nitrogen 25 mg/dL (9-20); Calcium 8.7 mg/dL (8.4-10.2); Carbon Dioxide 15 mmol/L (22-32); Chloride 105 mmol/L (98-107); Estimated Glomerular Filt Rate 27.9 mL/min (>60); Globulin 2.3 g/dL (1.7-4.1); Glucose 223 mg/dL (80-110); HEMOLYSIS < 15 (0-50); Potassium 4.5 mmol/L (3.4-5.1); Sodium 135 mmol/L (137-145); Total Protein 4.7 g/dL (6.3-8.2)
[2018-10-24] MEDS: LACTATED RINGERS 1,000 ML 100 ML IV (05:19)
[2018-10-24 05:22] LABS: White Blood Cell Count 31.8 X10^3/uL (4.5-11.0)
[2018-10-24 05:27] LABS: Procalcitonin 59.55 ng/mL (<0.5)
[2018-10-24 05:33] LABS: Neutrophils Absolute Manual 28302 /uL (3000-5900); Total Cells Counted 100
[2018-10-24 05:34] LABS: Anisocytosis 1+; Polychromasia 1+
[2018-10-24 05:35] LABS: Troponin I 0.188 ng/mL (0.01-0.034)
[2018-10-24 05:37] LABS: B Type Natriuretic Peptide 458 (<100)
--- NOTE | 2018-10-24 05:49 | PC.NURSE ---
Addendum entered by Johana Mccann R.N. 10/24/18 06:54: I agree with Angie RNs assessments, notes, and interventions. Patient has been unresponsive throughout night. A-flutter, BBB. CVP 11-12. Vent settings PRVC, FIO2 100% TV 500 PEEP 10 RR 24, SpO2 >93%, patient overrides setting up to 28. Original Note: Addendum entered by Angie Evangelista R.N. 10/24/18 06:22: correction to previous note Levophed is at 15 mcg/hr Original Note: NOC Note: Pt intabated and sedated, at start of shift was on 3 mg/hr morphine and 3mg/hr versed both were titrated down to 1mg/hr and at approx 0530 morphine was put back up to 2mg/hr. Pt has recieved mag-rider, k-rider and sodium bicarb as ordered. Levophed has remained at 15mg/hr this through the shift. BP and HR have varied, see VS trend in charts. LS are coarse rhonchi and pt has had no urine output this shift. Dtr and significant other have been in the room for most of the night, KRISTOPHER Spear has been in with pt and his family multiple times this shift. Pt seen by RT multiple times shift as well.
[2018-10-24] MEDS: FAMOTIDINE 20 MG/50 ML PIGGYBACK 200 MG IV (05:59)
--- NOTE | 2018-10-24 06:00 | DI.RAD.S_ITS ---
PROCEDURE: XR CHEST 1V INDICATIONS: intubated TECHNIQUE: One view of the chest was acquired. COMPARISON: [facility], CR, XR CHEST 1V, 10/23/2018, 20:46. FINDINGS: Surgical changes and devices: The tip of the ET tube is 4.5 cm above faith. There is a nasogastric tube within the stomach. A right IJ central line tip is in the distal SVC. There is a left-sided PIC line with the tip in SVC. Sternotomy and CABG. Lungs and pleura: Large left pleural effusion has decreased in size. Bilateral pulmonary infiltrates may be secondary to pulmonary edema or bilateral pneumonia. There is left basilar consolidation or atelectasis. No pneumothorax. Mediastinum: Mediastinal contours appear normal. Heart size is normal. Bones and chest wall: No suspicious bony lesions. Overlying soft tissues appear unremarkable. IMPRESSION: 1. Decreased left pleural effusion with improved aeration in left lung. Dictated by: Isa White M.D. on 10/24/2018 at 9:24 Approved by: Isa White M.D. on 10/24/2018 at 9:26
[2018-10-24 08:04] LABS: pH ABG 7.18 (7.35-7.45)
[2018-10-24 08:05] LABS: HCO3 ABG 15 mmol/L (22-26); Oxygen Saturation ABG 94 % (95-100); PCO2 ABG 39.3 mmHg (35-45); PO2 ABG 87 mmHg (80-100); TCO2 ABG 16 mmol/L (21-31)
[2018-10-24 08:06] LABS: Fractionated Inspired Oxygen 100
--- NOTE | 2018-10-24 08:55 | P.PN_ITS ---
Subjective Date Patient Seen: 10/24/18 Interval history: Events reviewed, Patient seen and examined. Family at bed side. His daughter and significant other are present. The patient is a 73 y/o male with a history of Metastatic Prostatic Cancer who presented with Community Acquired Pneumonia and developed Septic Shock with Multiorgan System failure last night. He was intubated at admission. He has required pressors for blood pressure support and he has now developed fulminant Oliguric Renal Failure. The patient is coagulopathic although not in DIC. He is unresponsive to stimuli. His repeat Chest Xray reveals complete white out of the left lung. Despite maximum efforts the patient is unresponsive to Exam Vital Signs (past 8 hours): - 10/24/18 01:00 10/24/18 02:00 10/24/18 02:30 Temperature Pulse Rate 88 78 71 Respiratory Rate 24 24 24 Blood Pressure 99/50 L 100/51 L 89/51 L Pulse Oximetry 94 95 95 10/24/18 03:06 10/24/18 04:00 10/24/18 05:40 Temperature Pulse Rate 78 73 72 Respiratory Rate 24 22 24 Blood Pressure 90/41 L 96/39 L 85/49 L Pulse Oximetry 95 94 94 10/24/18 07:00 Temperature 97.9 F Pulse Rate 70 Respiratory Rate 24 Blood Pressure 95/46 L Pulse Oximetry 94 Fraction of Inspired Oxygen 100 Oxygen Delivery Method Mechanical Ventilation Oxygen Flow Rate 15 Narrative Exam Narrative: Obtained male unresponsive, into Lungs: Decreased breath sounds on the left, with occasional crackle Cardiac exam: Regular rate and rhythm normal S1-S2 with a 2/6 systolic ejection murmur Abdomen: Soft nontender nondistended Extremities: Trace edema bilateral Objective Labs Result Diagrams: 10/24/18 04:45 10/24/18 04:45 Labs: Laboratory Results - last 24 hr 10/23/18 10/23/18 10/23/18 10:25 10:25 10:25 WBC 14.2 H RBC 4.41 L Hgb 15.1 Hct 43.1 MCV 97.8 MCH 34.2 H MCHC 35.0 RDW 15.8 H Plt Count 163 Neut % (Auto) 85.7 H Lymph % (Auto) 8.7 L [place] % (Auto) 5.2 Eos % (Auto) 0.0 L Baso % (Auto) 0.4 Neut # (Auto) 84782 H Lymph # (Auto) 1200 [place] # (Auto) 700 Eos # (Auto) 0 Baso # (Auto) 100 Total Counted Seg Neutrophils % Band Neutrophils % Lymphocytes % (Manual) Monocytes % (Manual) Metamyelocytes % Neutrophils # (Manual) RBC Morphology Polychromasia Anisocytosis PT INR ABG pH ABG pCO2 ABG pO2 ABG HCO3 ABG Total CO2 ABG O2 Saturation ABG Base Excess FiO2 Sodium 137 Potassium 3.8 Chloride 101 Carbon Dioxide 25 BUN 15 Creatinine 0.60 L Estimated GFR > 60.0 BUN/Creatinine Ratio 25.0 H Glucose 128 H Lactate Calcium 9.1 Phosphorus Magnesium Total Bilirubin 2.2 H AST 39 ALT 35 Alkaline Phosphatase 87 Total Creatine Kinase 36 L CK-MB (CK-2) TNP CK-MB (CK-2) Rel Index TNP Troponin I 0.021 B-Natriuretic Peptide 120 H Total Protein 6.9 Albumin 4.0 Globulin 2.9 Albumin/Globulin Ratio 1.4 Lipase 51 Procalcitonin 0.23 Urine Color Urine Appearance Urine pH Ur Specific [place] Urine Protein Urine Glucose (UA) Urine Ketones Urine Occult Blood Urine Nitrate Urine Bilirubin Urine Urobilinogen Ur Leukocyte Esterase Urine RBC Urine WBC Urine Bacteria Ur Culture Indicated? Nasal Screen MRSA (PCR) Chlamy pneumoniae PCR Adenovirus (PCR) B.parapertussis DNA PCR Coronavirus OC43 (PCR) Coronavirus HKU1 (PCR) Coronavirus 229E (PCR) Coronavirus NL63 (PCR) Human Metapneumovir PCR Influenza Type A (PCR) Influenza Type B (PCR) M. pneumoniae (PCR) Parainfluenza 1 (PCR) Parainfluenza 2 (PCR) Parainfluenza 3 (PCR) Parainfluenza 4 (PCR) RSV (PCR) Entero/Rhino (PCR) 10/23/18 10/23/18 10/23/18 10:25 10:25 11:45 WBC RBC Hgb Hct MCV MCH MCHC RDW Plt Count Neut % (Auto) Lymph % (Auto) [place] % (Auto) Eos % (Auto) Baso % (Auto) Neut # (Auto) Lymph # (Auto) [place] # (Auto) Eos # (Auto) Baso # (Auto) Total Counted Seg Neutrophils % Band Neutrophils % Lymphocytes % (Manual) Monocytes % (Manual) Metamyelocytes % Neutrophils # (Manual) RBC Morphology Polychromasia Anisocytosis PT 28.9 H INR 2.5 H ABG pH ABG pCO2 ABG pO2 ABG HCO3 ABG Total CO2 ABG O2 Saturation ABG Base Excess FiO2 Sodium Potassium Chloride Carbon Dioxide BUN Creatinine Estimated GFR BUN/Creatinine Ratio Glucose Lactate 1.4 Calcium Phosphorus Magnesium Total Bilirubin AST ALT Alkaline Phosphatase Total Creatine Kinase CK-MB (CK-2) CK-MB (CK-2) Rel Index Troponin I B-Natriuretic Peptide Total Protein Albumin Globulin Albumin/Globulin Ratio Lipase Procalcitonin Urine Color Yellow Urine Appearance Cloudy Urine pH 8.5 H Ur Specific [place] 1.015 Urine Protein 1+ H Urine Glucose (UA) Negative Urine Ketones Trace H Urine Occult Blood Trace-lysed Urine Nitrate Negative Urine Bilirubin Negative Urine Urobilinogen 0.2 Ur Leukocyte Esterase 1+ H Urine RBC None seen Urine WBC 10-30/hpf H D Urine Bacteria Many (>30) H Ur Culture Indicated? Specimen cultured Nasal Screen MRSA (PCR) Chlamy pneumoniae PCR Adenovirus (PCR) B.parapertussis DNA PCR Coronavirus OC43 (PCR) Coronavirus HKU1 (PCR) Coronavirus 229E (PCR) Coronavirus NL63 (PCR) Human Metapneumovir PCR Influenza Type A (PCR) Influenza Type B (PCR) M. pneumoniae (PCR) Parainfluenza 1 (PCR) Parainfluenza 2 (PCR) Parainfluenza 3 (PCR) Parainfluenza 4 (PCR) RSV (PCR) Entero/Rhino (PCR) 10/23/18 10/23/18 10/23/18 14:00 15:43 17:00 WBC RBC Hgb Hct MCV MCH MCHC RDW Plt Count Neut % (Auto) Lymph % (Auto) [place] % (Auto) Eos % (Auto) Baso % (Auto) Neut # (Auto) Lymph # (Auto) [place] # (Auto) Eos # (Auto) Baso # (Auto) Total Counted Seg Neutrophils % Band Neutrophils % Lymphocytes % (Manual) Monocytes % (Manual) Metamyelocytes % Neutrophils # (Manual) RBC Morphology Polychromasia Anisocytosis PT INR ABG pH 7.39 ABG pCO2 30.5 L ABG pO2 75 L ABG HCO3 18 L ABG Total CO2 19 L ABG O2 Saturation 95 ABG Base Excess -7.0 L FiO2 65 Sodium Potassium Chloride Carbon Dioxide BUN Creatinine Estimated GFR BUN/Creatinine Ratio Glucose Lactate 3.7 H Calcium Phosphorus Magnesium Total Bilirubin AST ALT Alkaline Phosphatase Total Creatine Kinase CK-MB (CK-2) CK-MB (CK-2) Rel Index Troponin I B-Natriuretic Peptide Total Protein Albumin Globulin Albumin/Globulin Ratio Lipase Procalcitonin Urine Color Urine Appearance Urine pH Ur Specific [place] Urine Protein Urine Glucose (UA) Urine Ketones Urine Occult Blood Urine Nitrate Urine Bilirubin Urine Urobilinogen Ur Leukocyte Esterase Urine RBC Urine WBC Urine Bacteria Ur Culture Indicated? Nasal Screen MRSA (PCR) Negative for mrsa Chlamy pneumoniae PCR Adenovirus (PCR) B.parapertussis DNA PCR Coronavirus OC43 (PCR) Coronavirus HKU1 (PCR) Coronavirus 229E (PCR) Coronavirus NL63 (PCR) Human Metapneumovir PCR Influenza Type A (PCR) Influenza Type B (PCR) M. pneumoniae (PCR) Parainfluenza 1 (PCR) Parainfluenza 2 (PCR) Parainfluenza 3 (PCR) Parainfluenza 4 (PCR) RSV (PCR) Entero/Rhino (PCR) 10/23/18 10/23/18 10/23/18 18:40 18:40 18:40 WBC 16.2 H RBC 4.06 L Hgb 13.7 Hct 40.4 L MCV 99.7 MCH 33.9 MCHC 34.0 RDW 15.7 H Plt Count 154 Neut % (Auto) 86.8 H Lymph % (Auto) 7.5 L [place] % (Auto) 5.3 Eos % (Auto) 0.0 L Baso % (Auto) 0.4 Neut # (Auto) 99191 H Lymph # (Auto) 1200 [place] # (Auto) 800 Eos # (Auto) 0 Baso # (Auto) 100 Total Counted Seg Neutrophils % Band Neutrophils % Lymphocytes % (Manual) Monocytes % (Manual) Metamyelocytes % Neutrophils # (Manual) RBC Morphology Polychromasia Anisocytosis PT INR ABG pH ABG pCO2 ABG pO2 ABG HCO3 ABG Total CO2 ABG O2 Saturation ABG Base Excess FiO2 Sodium 136 L Potassium 3.0 L Chloride 105 Carbon Dioxide 20 L BUN 20 Creatinine 1.70 H Estimated GFR 39.5 L BUN/Creatinine Ratio 11.8 Glucose 108 Lactate Calcium 8.4 Phosphorus Magnesium Total Bilirubin 1.4 H AST 32 ALT 28 Alkaline Phosphatase 87 Total Creatine Kinase CK-MB (CK-2) CK-MB (CK-2) Rel Index Troponin I B-Natriuretic Peptide Total Protein 4.9 L Albumin 2.6 L Globulin 2.3 Albumin/Globulin Ratio 1.1 Lipase Procalcitonin 19.12 H Urine Color Urine Appearance Urine pH Ur Specific [place] Urine Protein Urine Glucose (UA) Urine Ketones Urine Occult Blood Urine Nitrate Urine Bilirubin Urine Urobilinogen Ur Leukocyte Esterase Urine RBC Urine WBC Urine Bacteria Ur Culture Indicated? Nasal Screen MRSA (PCR) Chlamy pneumoniae PCR Adenovirus (PCR) B.parapertussis DNA PCR Coronavirus OC43 (PCR) Coronavirus HKU1 (PCR) Coronavirus 229E (PCR) Coronavirus NL63 (PCR) Human Metapneumovir PCR Influenza Type A (PCR) Influenza Type B (PCR) M. pneumoniae (PCR) Parainfluenza 1 (PCR) Parainfluenza 2 (PCR) Parainfluenza 3 (PCR) Parainfluenza 4 (PCR) RSV (PCR) Entero/Rhino (PCR) 10/23/18 10/23/18 10/23/18 18:40 19:35 22:35 WBC RBC Hgb Hct MCV MCH MCHC RDW Plt Count Neut % (Auto) Lymph % (Auto) [place] % (Auto) Eos % (Auto) Baso % (Auto) Neut # (Auto) Lymph # (Auto) [place] # (Auto) Eos # (Auto) Baso # (Auto) Total Counted Seg Neutrophils % Band Neutrophils % Lymphocytes % (Manual) Monocytes % (Manual) Metamyelocytes % Neutrophils # (Manual) RBC Morphology Polychromasia Anisocytosis PT INR ABG pH 7.32 L ABG pCO2 29.8 L ABG pO2 75 L ABG HCO3 15 L ABG Total CO2 16 L ABG O2 Saturation 94 L ABG Base Excess -11.0 L FiO2 75 Sodium Potassium Chloride Carbon Dioxide BUN Creatinine Estimated GFR BUN/Creatinine Ratio Glucose Lactate Calcium Phosphorus Magnesium Total Bilirubin AST ALT Alkaline Phosphatase Total Creatine Kinase 84 CK-MB (CK-2) TNP CK-MB (CK-2) Rel Index TNP Troponin I 0.125 H* B-Natriuretic Peptide Total Protein Albumin Globulin Albumin/Globulin Ratio Lipase Procalcitonin Urine Color Urine Appearance Urine pH Ur Specific [place] Urine Protein Urine Glucose (UA) Urine Ketones Urine Occult Blood Urine Nitrate Urine Bilirubin Urine Urobilinogen Ur Leukocyte Esterase Urine RBC Urine WBC Urine Bacteria Ur Culture Indicated? Nasal Screen MRSA (PCR) Chlamy pneumoniae PCR Not detected Adenovirus (PCR) Not detected B.parapertussis DNA PCR Not detected Coronavirus OC43 (PCR) Not detected Coronavirus HKU1 (PCR) Not detected Coronavirus 229E (PCR) Not detected Coronavirus NL63 (PCR) Not detected Human Metapneumovir PCR Not detected Influenza Type A (PCR) Not detected Influenza Type B (PCR) Not detected M. pneumoniae (PCR) Not detected Parainfluenza 1 (PCR) Not detected Parainfluenza 2 (PCR) Not detected Parainfluenza 3 (PCR) Not detected Parainfluenza 4 (PCR) Not detected RSV (PCR) Not detected Entero/Rhino (PCR) Not detected 10/23/18 10/23/18 10/23/18 22:40 22:40 22:40 WBC RBC Hgb Hct MCV MCH MCHC RDW Plt Count Neut % (Auto) Lymph % (Auto) [place] % (Auto) Eos % (Auto) Baso % (Auto) Neut # (Auto) Lymph # (Auto) [place] # (Auto) Eos # (Auto) Baso # (Auto) Total Counted Seg Neutrophils % Band Neutrophils % Lymphocytes % (Manual) Monocytes % (Manual) Metamyelocytes % Neutrophils # (Manual) RBC Morphology Polychromasia Anisocytosis PT INR ABG pH ABG pCO2 ABG pO2 ABG HCO3 ABG Total CO2 ABG O2 Saturation ABG Base Excess FiO2 Sodium 136 L Potassium 3.3 L Chloride 106 Carbon Dioxide 17 L BUN 22 H Creatinine 1.90 H Estimated GFR 34.7 L BUN/Creatinine Ratio 11.6 Glucose 115 H Lactate 7.7 H Calcium 8.6 Phosphorus 3.6 Magnesium 1.5 L Total Bilirubin AST ALT Alkaline Phosphatase Total Creatine Kinase CK-MB (CK-2) CK-MB (CK-2) Rel Index Troponin I 0.136 H* B-Natriuretic Peptide Total Protein Albumin Globulin Albumin/Globulin Ratio Lipase Procalcitonin Urine Color Urine Appearance Urine pH Ur Specific [place] Urine Protein Urine Glucose (UA) Urine Ketones Urine Occult Blood Urine Nitrate Urine Bilirubin Urine Urobilinogen Ur Leukocyte Esterase Urine RBC Urine WBC Urine Bacteria Ur Culture Indicated? Nasal Screen MRSA (PCR) Chlamy pneumoniae PCR Adenovirus (PCR) B.parapertussis DNA PCR Coronavirus OC43 (PCR) Coronavirus HKU1 (PCR) Coronavirus 229E (PCR) Coronavirus NL63 (PCR) Human Metapneumovir PCR Influenza Type A (PCR) Influenza Type B (PCR) M. pneumoniae (PCR) Parainfluenza 1 (PCR) Parainfluenza 2 (PCR) Parainfluenza 3 (PCR) Parainfluenza 4 (PCR) RSV (PCR) Entero/Rhino (PCR) 10/23/18 10/24/18 10/24/18 23:52 02:03 02:52 WBC RBC Hgb Hct MCV MCH MCHC RDW Plt Count Neut % (Auto) Lymph % (Auto) [place] % (Auto) Eos % (Auto) Baso % (Auto) Neut # (Auto) Lymph # (Auto) [place] # (Auto) Eos # (Auto) Baso # (Auto) Total Counted Seg Neutrophils % Band Neutrophils % Lymphocytes % (Manual) Monocytes % (Manual) Metamyelocytes % Neutrophils # (Manual) RBC Morphology Polychromasia Anisocytosis PT INR ABG pH 7.17 L* 7.15 L* ABG pCO2 38.1 39.2 ABG pO2 94 87 ABG HCO3 14 L 14 L ABG Total CO2 15 L 15 L ABG O2 Saturation 95 93 L ABG Base Excess -15.0 L -15.0 L FiO2 100 100 Sodium Potassium Chloride Carbon Dioxide BUN Creatinine Estimated GFR BUN/Creatinine Ratio Glucose Lactate 7.9 H Calcium Phosphorus Magnesium Total Bilirubin AST ALT Alkaline Phosphatase Total Creatine Kinase CK-MB (CK-2) CK-MB (CK-2) Rel Index Troponin I B-Natriuretic Peptide Total Protein Albumin Globulin Albumin/Globulin Ratio Lipase Procalcitonin Urine Color Urine Appearance Urine pH Ur Specific [place] Urine Protein Urine Glucose (UA) Urine Ketones Urine Occult Blood Urine Nitrate Urine Bilirubin Urine Urobilinogen Ur Leukocyte Esterase Urine RBC Urine WBC Urine Bacteria Ur Culture Indicated? Nasal Screen MRSA (PCR) Chlamy pneumoniae PCR Adenovirus (PCR) B.parapertussis DNA PCR Coronavirus OC43 (PCR) Coronavirus HKU1 (PCR) Coronavirus 229E (PCR) Coronavirus NL63 (PCR) Human Metapneumovir PCR Influenza Type A (PCR) Influenza Type B (PCR) M. pneumoniae (PCR) Parainfluenza 1 (PCR) Parainfluenza 2 (PCR) Parainfluenza 3 (PCR) Parainfluenza 4 (PCR) RSV (PCR) Entero/Rhino (PCR) 10/24/18 10/24/1819 04:45 04:45 04:45 WBC 31.8 H* D RBC 4.09 L Hgb 13.6 Hct 41.7 MCV 101.9 H MCH 33.3 MCHC 32.7 RDW 16.2 H Plt Count 172 Neut % (Auto) Not Reportable Lymph % (Auto) Not Reportable [place] % (Auto) Not Reportable Eos % (Auto) Not Reportable Baso % (Auto) Not Reportable Neut # (Auto) Lymph # (Auto) Not Reportable [place] # (Auto) Not Reportable Eos # (Auto) Baso # (Auto) Not Reportable Total Counted 100 Seg Neutrophils % 62.0 Band Neutrophils % 27.0 H Lymphocytes % (Manual) 4.0 L Monocytes % (Manual) 5.0 Metamyelocytes % 2.0 H Neutrophils # (Manual) 68185 H RBC Morphology See below Polychromasia 1+ H Anisocytosis 1+ H PT 43.0 H D INR 3.6 H ABG pH ABG pCO2 ABG pO2 ABG HCO3 ABG Total CO2 ABG O2 Saturation ABG Base Excess FiO2 Sodium 135 L Potassium 4.5 D Chloride 105 Carbon Dioxide 15 L BUN 25 H Creatinine 2.30 H Estimated GFR 27.9 L BUN/Creatinine Ratio 10.9 Glucose 223 H D Lactate Calcium 8.7 Phosphorus Magnesium Total Bilirubin 1.3 AST 164 H ALT 97 H Alkaline Phosphatase 155 H D Total Creatine Kinase CK-MB (CK-2) CK-MB (CK-2) Rel Index Troponin I B-Natriuretic Peptide Total Protein 4.7 L Albumin 2.4 L Globulin 2.3 Albumin/Globulin Ratio 1.0 Lipase Procalcitonin Urine Color Urine Appearance Urine pH Ur Specific [place] Urine Protein Urine Glucose (UA) Urine Ketones Urine Occult Blood Urine Nitrate Urine Bilirubin Urine Urobilinogen Ur Leukocyte Esterase Urine RBC Urine WBC Urine Bacteria Ur Culture Indicated? Nasal Screen MRSA (PCR) Chlamy pneumoniae PCR Adenovirus (PCR) B.parapertussis DNA PCR Coronavirus OC43 (PCR) Coronavirus HKU1 (PCR) Coronavirus 229E (PCR) Coronavirus NL63 (PCR) Human Metapneumovir PCR Influenza Type A (PCR) Influenza Type B (PCR) M. pneumoniae (PCR) Parainfluenza 1 (PCR) Parainfluenza 2 (PCR) Parainfluenza 3 (PCR) Parainfluenza 4 (PCR) RSV (PCR) Entero/Rhino (PCR) 10/24/18 10/24/18 10/24/18 04:45 04:45 04:45 WBC RBC Hgb Hct MCV MCH MCHC RDW Plt Count Neut % (Auto) Lymph % (Auto) [place] % (Auto) Eos % (Auto) Baso % (Auto) Neut # (Auto) Lymph # (Auto) [place] # (Auto) Eos # (Auto) Baso # (Auto) Total Counted Seg Neutrophils % Band Neutrophils % Lymphocytes % (Manual) Monocytes % (Manual) Metamyelocytes % Neutrophils # (Manual) RBC Morphology Polychromasia Anisocytosis PT INR ABG pH ABG pCO2 ABG pO2 ABG HCO3 ABG Total CO2 ABG O2 Saturation ABG Base Excess FiO2 Sodium Potassium Chloride Carbon Dioxide BUN Creatinine Estimated GFR BUN/Creatinine Ratio Glucose Lactate Calcium Phosphorus Magnesium Total Bilirubin AST ALT Alkaline Phosphatase Total Creatine Kinase CK-MB (CK-2) CK-MB (CK-2) Rel Index Troponin I 0.188 H* B-Natriuretic Peptide 458 H Total Protein Albumin Globulin Albumin/Globulin Ratio Lipase Procalcitonin 59.55 H Urine Color Urine Appearance Urine pH Ur Specific [place] Urine Protein Urine Glucose (UA) Urine Ketones Urine Occult Blood Urine Nitrate Urine Bilirubin Urine Urobilinogen Ur Leukocyte Esterase Urine RBC Urine WBC Urine Bacteria Ur Culture Indicated? Nasal Screen MRSA (PCR) Chlamy pneumoniae PCR Adenovirus (PCR) B.parapertussis DNA PCR Coronavirus OC43 (PCR) Coronavirus HKU1 (PCR) Coronavirus 229E (PCR) Coronavirus NL63 (PCR) Human Metapneumovir PCR Influenza Type A (PCR) Influenza Type B (PCR) M. pneumoniae (PCR) Parainfluenza 1 (PCR) Parainfluenza 2 (PCR) Parainfluenza 3 (PCR) Parainfluenza 4 (PCR) RSV (PCR) Entero/Rhino (PCR) 10/24/18 07:30 WBC RBC Hgb Hct MCV MCH MCHC RDW Plt Count Neut % (Auto) Lymph % (Auto) [place] % (Auto) Eos % (Auto) Baso % (Auto) Neut # (Auto) Lymph # (Auto) [place] # (Auto) Eos # (Auto) Baso # (Auto) Total Counted Seg Neutrophils % Band Neutrophils % Lymphocytes % (Manual) Monocytes % (Manual) Metamyelocytes % Neutrophils # (Manual) RBC Morphology Polychromasia Anisocytosis PT INR ABG pH 7.18 L* ABG pCO2 39.3 ABG pO2 87 ABG HCO3 15 L ABG Total CO2 16 L ABG O2 Saturation 94 L ABG Base Excess -14.0 L FiO2 100 Sodium Potassium Chloride Carbon Dioxide BUN Creatinine Estimated GFR BUN/Creatinine Ratio Glucose Lactate Calcium Phosphorus Magnesium Total Bilirubin AST ALT Alkaline Phosphatase Total Creatine Kinase CK-MB (CK-2) CK-MB (CK-2) Rel Index Troponin I B-Natriuretic Peptide Total Protein Albumin Globulin Albumin/Globulin Ratio Lipase Procalcitonin Urine Color Urine Appearance Urine pH Ur Specific [place] Urine Protein Urine Glucose (UA) Urine Ketones Urine Occult Blood Urine Nitrate Urine Bilirubin Urine Urobilinogen Ur Leukocyte Esterase Urine RBC Urine WBC Urine Bacteria Ur Culture Indicated? Nasal Screen MRSA (PCR) Chlamy pneumoniae PCR Adenovirus (PCR) B.parapertussis DNA PCR Coronavirus OC43 (PCR) Coronavirus HKU1 (PCR) Coronavirus 229E (PCR) Coronavirus NL63 (PCR) Human Metapneumovir PCR Influenza Type A (PCR) Influenza Type B (PCR) M. pneumoniae (PCR) Parainfluenza 1 (PCR) Parainfluenza 2 (PCR) Parainfluenza 3 (PCR) Parainfluenza 4 (PCR) RSV (PCR) Entero/Rhino (PCR) Assessment & Plan (1) Septic shock: Problem details: Patient developed septic shock overnight. This was not present on admission. He received IV hydration, was started on Levophed as a pressor, but continued to deteriorate. The patient developed acute renal failure. He had progressive deterioration despite IV antibiotic IV fluid and steroids. His daughter who is his durable power of divorce attorney has requested we withdraw support except for the ventilator and move him towards comfort measures. As such all medications have been withdrawn except for IV morphine and midazolam for comfort. Patient is terminal and it is expected that he will sometime today. Current visit: Yes Status: Acute (2) Acute renal failure: Problem details: Acute renal failure, not present on admission, developed during the hospital course. Patient has transition to comfort measures. Current visit: Yes Status: Acute (3) Acute respiratory failure: Problem details: Acute respiratory failure, present on admission, secondary to community-acquired pneumonia. As with transition to comfort measures all medications have been discontinued he will continue on the ventilator for now. Current visit: Yes Status: Acute (4) Community acquired pneumonia: Problem details: Community-acquired pneumonia, present on admission. Will continue IV antibiotics. Will re-evaluate x-ray to rule out the possibility of a loculated effusion, empyema which would require surgical intervention. This is progressive. He has complete opacity of the left lung Current visit: Yes Status: Acute (5) History of aortic valve replacement: Problem details: History of aortic valve replacement, present on admission, Current visit: Yes Status: Acute (6) Paroxysmal atrial fibrillation: Problem details: Paroxysmal atrial fibrillation, present on admission now on comfort measures Current visit: Yes Status: Acute (7) Prostate cancer metastatic to bone: Problem details: Prostate cancer, metastatic, present on admission. Now on comfort measures. Current visit: No Status: Acute (8) Acute UTI: Problem details: Antibiotics discontinued Current visit: Yes Status: Acute Assessment & Plan narrative: Patient is DNR, on comfort measures, is imminent, expect he will within 24 hours.
[2018-10-24] MEDS: MORPHINE 15 MG/ML VIAL 50 MG in DEXTROSE 5 % IN WATER 50 ML IV (09:07)
--- NOTE | 2018-10-24 09:37 | PC.NURSE ---
Addendum entered by Danya Malik R.N. 10/24/18 11:39: heartrate is 48-51 bpm - no measurable uop per decker cath - family at bedside Original Note: Addendum entered by Danya Malik R.N. 10/24/18 11:08: spoke with family at bedside and they requested we don't bath or turn pt at this time- declined for us to perform mouth care - support given Original Note: PT IS UNRESPONSIVE - REMAINS OF VENTILATOR AT 100% FIO2- NO SPONTANEOUS RESPIRATIONS OVER THE VENT, FAMILY IS AT [facility] AND HAS DECIDED THAT HE WILL BE A DNR WITH NO FURTHER IV ABX/IVF/ PRESSORS OR LAB/ABG STICKS WELL REMOVAL OF SCD'S AND BP CHECKS- THEY REALIZE THAT HE WILL NOT LIVE THRU THIS HOSPITALIZATION-
--- NOTE | 2018-10-24 10:50 | CM.DANOTE ---
DCP: Case received, EMR reviewed. Information obtained from current reports regarding patient and history. Patient is a 73 year old male who admitted yesterday afternoon to the care of the hospitalist team. Payer: confirmed: Medicare/BCBS Out of [facility]. Patient had come to hospital via ambulance secondary to pain in his left side while breathing. Patient has history of metastatic prostate cancer. Patient's breathing had become more labored, and he was intubated. Patient is now on a ventilator and expected to pass here in hospital. Dr. Wright mentioned in morning meeting that his kidneys were starting to fail as well. She was in room discussing code status, for his original POLST was full code. Patient is not from this area. He drove up here from [place] to visit family, and for the [employer]. He has a significant other that is with him, and a daughter, who came up from [place]. They are both at his bedside now. Hospitalist has taken him off most of his medications, but family wants to keep him on the ventilator at this time. P: Patient is on comfort care at this time, and is expected to here in hospital. Leyla Yanes RN/ Director Of Sustainable Design
--- NOTE | 2018-10-24 15:30 | PC.NURSE ---
Addendum entered by Beena Green R.N. 10/24/18 19:50: 1945 - [place] [facility] arrived to pick patient up. Subramanian, PICC line, and central line removed per cooling room attendant's request. All belongings sent with patient. Addendum entered by Beena Green R.N. 10/24/18 17:35: 1720 - Patient noted to be asystole on telemetry. Family at bedside. RT notified for vent and Dr. Wright notified of time of . Patient confirmed to have no heart rate by 2 RNs. Vent turned off by RT. Noted to have no spontaneous respirations or heart rate for > 1 minute. Daughter and significant other remain at bedside with patient. Original Note: 1530 - Patient remains unresponsive . Daughter and significant other at bedside. No signs of discomfort noted at this time. Morphine and versed gtts running per orders. Patient remains on vent per family wishes. Family refuses turning patient at this time.
--- NOTE | 2018-10-24 17:24 | P.DS_ITS ---
History of Present Illness Chief complaint: L side pain with deep breath getting worse Narrative: The patient is a 73-year-old male with a history of metastatic prostate cancer, valvular heart disease status post a titanium aortic valve, a trial fibrillation who was in his usual state of health until Tuesday 3 days prior to admission. Patient's significant other who is here with him reports he started complaining of left-sided chest pain. by Tuesday he was short of breath. He was seen and evaluated in the emergency department where chest x-ray was negative. He underwent a chest CT which was unremarkable. The patient was discharged home. He resents return to the emergency department today markedly short of breath. He had a chest x-ray which showed significant pleural effusions with some loculation on the left. Was felt that he had abrupt onset of pneumonia. The patient was in significant respiratory distress and required intubation. Since that time he has been unable to provide any additional history. According to his significant other prostate cancer 1 year ago. He completed 4 months of chemotherapy. His PSA came down from 189 to 1.1. They came up from [place] to celebrate his 1 year anniversary. There at the [facility] to a festival. The patient has known metastatic disease. he has been managed with Zytiga and according to his significant other has not required any follow-up studies. He has been doing well until this admission. Family history is unobtainable as the patient is intubated and sedated. Social history unobtainable. Discharge Providers Date of admission: 10/23/18 12:55 Discharge Date: 10/24/18 Consults: 10/23/18 15:17 Consult to Dietitian, Adult Routine Comment: Reason For Exam: Patient on Ventilator and NPO Discharge provider: Danette Wright MD Summary Discharge Diagnosis: 1. Septic shock 2. Acute respiratory failure 3. Community-acquired pneumonia 4. Acute renal failure 5. Acute metabolic encephalopathy 6. History of Aortic Valve Replacement 7. Metastatic prostate cancer 8. Paroxysmal atrial fibrillation Hospital Course: The patient is a 73-year-old male who was admitted to the hospital with acute respiratory failure. Symptoms began acutely 2 nights prior to admission he was seen in the ED chest x-ray and CT were unremarkable and he was discharged home. Patient returned with severe left-sided pain repeat chest x-ray showed increased infiltrates on the left side. The patient became progressively hypoxic and was intubated in the emergency department. He was started on antibiotics and admitted to the ICU. In the ICU the patient developed hypotension. His initial lactate went from 1.4 up to 3.7. He was gi yesika 30 mils per kg of IV fluids. He was also switched to Zosyn and levofloxacin. Patient was given hydrocortisone given his persistent hypotension and previous prednisone use. Despite this patient remained hypotensive. He had poor urine output. He became oliguric. Repeat labs demonstrated acute renal failure he was unresponsive off of morphine and Versed. In addition the patient had elevated LFTs and worsening coagulopathy. He was placed on Levophed. Despite the Levophed and improvement of his blood pressure his urine output continued to decline. He remained oliguric and markedly acidotic. Patient was placed on a bicarb drip. A discussion with the family was held at the time of a dmission when the patient was made full code. However he had a living will and his daughter who is his durable power civil rights attorney flew up from [place]. After reviewing his advanced directives became obvious that the patient would not want life-prolonging procedures. In discussion with the family his daughter and significant other they recommended discontinuation of all treatment except for ventilation. His pressors IV fluids antibiotics were discontinued. The patient expectantly at 5:15 p.m.. Exam Vital Signs (past 8 hours): Fraction of Inspired Oxygen 100 Oxygen Delivery Method Mechanical Ventilation Oxygen Flow Rate 15 Objective Labs Result Diagrams: 10/24/18 04:45 10/24/18 04:45 Labs: Laboratory Results - last 24 hr 10/23/18 10/23/18 10/23/18 14:00 17:00 18:40 WBC 16.2 H RBC 4.06 L Hgb 13.7 Hct 40.4 L MCV 99.7 MCH 33.9 MCHC 34.0 RDW 15.7 H Plt Count 154 Neut % (Auto) 86.8 H Lymph % (Auto) 7.5 L Cren[place] % (Auto) 5.3 Eos % (Auto) 0.0 L Baso % (Auto) 0.4 Neut # (Auto) 80680 H Lymph # (Auto) 1200 Crenshaw # (Auto) 800 Eos # (Auto) 0 Baso # (Auto) 100 Total Counted Seg Neutrophils % Band Neutrophils % Lymphocytes % (Manual) Monocytes % (Manual) Metamyelocytes % Neutrophils # (Manual) RBC Morphology Polychromasia Anisocytosis PT INR ABG pH ABG pCO2 ABG pO2 ABG HCO3 ABG Total CO2 ABG O2 Saturation ABG Base Excess FiO2 Sodium Potassium Chloride Carbon Dioxide BUN Creatinine Estimated GFR BUN/Creatinine Ratio Glucose Lactate 3.7 H Calcium Phosphorus Magnesium Total Bilirubin AST ALT Alkaline Phosphatase Total Creatine Kinase CK-MB (CK-2) CK-MB (CK-2) Rel Index Troponin I B-Natriuretic Peptide Total Protein Albumin Globulin Albumin/Globulin Ratio Procalcitonin Nasal Screen MRSA (PCR) Negative for mrsa Chlamy pneumoniae PCR Adenovirus (PCR) B.parapertussis DNA PCR Coronavirus OC43 (PCR) Coronavirus HKU1 (PCR) Coronavirus 229E (PCR) Coronavirus NL63 (PCR) Human Metapneumovir PCR Influenza Type A (PCR) Influenza Type B (PCR) M. pneumoniae (PCR) Parainfluenza 1 (PCR) Parainfluenza 2 (PCR) Parainfluenza 3 (PCR) Parainfluenza 4 (PCR) RSV (PCR) Entero/Rhino (PCR) 10/23/18 10/23/18 10/23/18 18:40 18:40 18:40 WBC RBC Hgb Hct MCV MCH MCHC RDW Plt Count Neut % (Auto) Lymph % (Auto) Crenshaw % (Auto) Eos % (Auto) Baso % (Auto) Neut # (Auto) Lymph # (Auto) Crenshaw # (Auto) Eos # (Auto) Baso # (Auto) Total Counted Seg Neutrophils % Band Neutrophils % Lymphocytes % (Manual) Monocytes % (Manual) Metamyelocytes % Neutrophils # (Manual) RBC Morphology Polychromasia Anisocytosis PT INR ABG pH ABG pCO2 ABG pO2 ABG HCO3 ABG Total CO2 ABG O2 Saturation ABG Base Excess FiO2 Sodium 136 L Potassium 3.0 L Chloride 105 Carbon Dioxide 20 L BUN 20 Creatinine 1.70 H Estimated GFR 39.5 L BUN/Creatinine Ratio 11.8 Glucose 108 Lactate Calcium 8.4 Phosphorus Magnesium Total Bilirubin 1.4 H AST 32 ALT 28 Alkaline Phosphatase 87 Total Creatine Kinase 84 CK-MB (CK-2) TNP CK-MB (CK-2) Rel Index TNP Troponin I 0.125 H* B-Natriuretic Peptide Total Protein 4.9 L Albumin 2.6 L Globulin 2.3 Albumin/Globulin Ratio 1.1 Procalcitonin 19.12 H Nasal Screen MRSA (PCR) Chlamy pneumoniae PCR Adenovirus (PCR) B.parapertussis DNA PCR Coronavirus OC43 (PCR) Coronavirus HKU1 (PCR) Coronavirus 229E (PCR) Coronavirus NL63 (PCR) Human Metapneumovir PCR Influenza Type A (PCR) Influenza Type B (PCR) M. pneumoniae (PCR) Parainfluenza 1 (PCR) Parainfluenza 2 (PCR) Parainfluenza 3 (PCR) Parainfluenza 4 (PCR) RSV (PCR) Entero/Rhino (PCR) 10/23/18 10/23/18 10/23/18 19:35 22:35 22:40 WBC RBC Hgb Hct MCV MCH MCHC RDW Plt Count Neut % (Auto) Lymph % (Auto) Crenshaw % (Auto) Eos % (Auto) Baso % (Auto) Neut # (Auto) Lymph # (Auto) Crenshaw # (Auto) Eos # (Auto) Baso # (Auto) Total Counted Seg Neutrophils % Band Neutrophils % Lymphocytes % (Manual) Monocytes % (Manual) Metamyelocytes % Neutrophils # (Manual) RBC Morphology Polychromasia Anisocytosis PT INR ABG pH 7.32 L ABG pCO2 29.8 L ABG pO2 75 L ABG HCO3 15 L ABG Total CO2 16 L ABG O2 Saturation 94 L ABG Base Excess -11.0 L FiO2 75 Sodium Potassium Chloride Carbon Dioxide BUN Creatinine Estimated GFR BUN/Creatinine Ratio Glucose Lactate 7.7 H Calcium Phosphorus Magnesium Total Bilirubin AST ALT Alkaline Phosphatase Total Creatine Kinase CK-MB (CK-2) CK-MB (CK-2) Rel Index Troponin I B-Natriuretic Peptide Total Protein Albumin Globulin Albumin/Globulin Ratio Procalcitonin Nasal Screen MRSA (PCR) Chlamy pneumoniae PCR Not detected Adenovirus (PCR) Not detected B.parapertussis DNA PCR Not detected Coronavirus OC43 (PCR) Not detected Coronavirus HKU1 (PCR) Not detected Coronavirus 229E (PCR) Not detected Coronavirus NL63 (PCR) Not detected Human Metapneumovir PCR Not detected Influenza Type A (PCR) Not detected Influenza Type B (PCR) Not detected M. pneumoniae (PCR) Not detected Parainfluenza 1 (PCR) Not detected Parainfluenza 2 (PCR) Not detected Parainfluenza 3 (PCR) Not detected Parainfluenza 4 (PCR) Not detected RSV (PCR) Not detected Entero/Rhino (PCR) Not detected 10/23/18 10/23/18 10/23/18 22:40 22:40 23:52 WBC RBC Hgb Hct MCV MCH MCHC RDW Plt Count Neut % (Auto) Lymph % (Auto) Crenshaw % (Auto) Eos % (Auto) Baso % (Auto) Neut # (Auto) Lymph # (Auto) Crenshaw # (Auto) Eos # (Auto) Baso # (Auto) Total Counted Seg Neutrophils % Band Neutrophils % Lymphocytes % (Manual) Monocytes % (Manual) Metamyelocytes % Neutrophils # (Manual) RBC Morphology Polychromasia Anisocytosis PT INR ABG pH 7.17 L* ABG pCO2 38.1 ABG pO2 94 ABG HCO3 14 L ABG Total CO2 15 L ABG O2 Saturation 95 ABG Base Excess -15.0 L FiO2 100 Sodium 136 L Potassium 3.3 L Chloride 106 Carbon Dioxide 17 L BUN 22 H Creatinine 1.90 H Estimated GFR 34.7 L BUN/Creatinine Ratio 11.6 Glucose 115 H Lactate Calcium 8.6 Phosphorus 3.6 Magnesium 1.5 L Total Bilirubin AST ALT Alkaline Phosphatase Total Creatine Kinase CK-MB (CK-2) CK-MB (CK-2) Rel Index Troponin I 0.136 H* B-Natriuretic Peptide Total Protein Albumin Globulin Albumin/Globulin Ratio Procalcitonin Nasal Screen MRSA (PCR) Chlamy pneumoniae PCR Adenovirus (PCR) B.parapertussis DNA PCR Coronavirus OC43 (PCR) Coronavirus HKU1 (PCR) Coronavirus 229E (PCR) Coronavirus NL63 (PCR) Human Metapneumovir PCR Influenza Type A (PCR) Influenza Type B (PCR) M. pneumoniae (PCR) Parainfluenza 1 (PCR) Parainfluenza 2 (PCR) Parainfluenza 3 (PCR) Parainfluenza 4 (PCR) RSV (PCR) Entero/Rhino (PCR) 10/24/18 10/24/18 10/24/18 02:03 02:52 04:45 WBC 31.8 H* D RBC 4.09 L Hgb 13.6 Hct 41.7 MCV 101.9 H MCH 33.3 MCHC 32.7 RDW 16.2 H Plt Count 172 Neut % (Auto) Not Reportable Lymph % (Auto) Not Reportable Crenshaw % (Auto) Not Reportable Eos % (Auto) Not Reportable Baso % (Auto) Not Reportable Neut # (Auto) Lymph # (Auto) Not Reportable Crenshaw # (Auto) Not Reportable Eos # (Auto) Baso # (Auto) Not Reportable Total Counted 100 Seg Neutrophils % 62.0 Band Neutrophils % 27.0 H Lymphocytes % (Manual) 4.0 L Monocytes % (Manual) 5.0 Metamyelocytes % 2.0 H Neutrophils # (Manual) 61563 H RBC Morphology See below Polychromasia 1+ H Anisocytosis 1+ H PT INR ABG pH 7.15 L* ABG pCO2 39.2 ABG pO2 87 ABG HCO3 14 L ABG Total CO2 15 L ABG O2 Saturation 93 L ABG Base Excess -15.0 L FiO2 100 Sodium Potassium Chloride Carbon Dioxide BUN Creatinine Estimated GFR BUN/Creatinine Ratio Glucose Lactate 7.9 H Calcium Phosphorus Magnesium Total Bilirubin AST ALT Alkaline Phosphatase Total Creatine Kinase CK-MB (CK-2) CK-MB (CK-2) Rel Index Troponin I B-Natriuretic Peptide Total Protein Albumin Globulin Albumin/Globulin Ratio Procalcitonin Nasal Screen MRSA (PCR) Chlamy pneumoniae PCR Adenovirus (PCR) B.parapertussis DNA PCR Coronavirus OC43 (PCR) Coronavirus HKU1 (PCR) Coronavirus 229E (PCR) Coronavirus NL63 (PCR) Human Metapneumovir PCR Influenza Type A (PCR) Influenza Type B (PCR) M. pneumoniae (PCR) Parainfluenza 1 (PCR) Parainfluenza 2 (PCR) Parainfluenza 3 (PCR) Parainfluenza 4 (PCR) RSV (PCR) Entero/Rhino (PCR) 10/24/18 10/24/18 10/24/18 04:45 04:45 04:45 WBC RBC Hgb Hct MCV MCH MCHC RDW Plt Count Neut % (Auto) Lymph % (Auto) [place] % (Auto) Eos % (Auto) Baso % (Auto) Neut # (Auto) Lymph # (Auto) [place] # (Auto) Eos # (Auto) Baso # (Auto) Total Counted Seg Neutrophils % Band Neutrophils % Lymphocytes % (Manual) Monocytes % (Manual) Metamyelocytes % Neutrophils # (Manual) RBC Morphology Polychromasia Anisocytosis PT 43.0 H D INR 3.6 H ABG pH ABG pCO2 ABG pO2 ABG HCO3 ABG Total CO2 ABG O2 Saturation ABG Base Excess FiO2 Sodium 135 L Potassium 4.5 D Chloride 105 Carbon Dioxide 15 L BUN 25 H Creatinine 2.30 H Estimated GFR 27.9 L BUN/Creatinine Ratio 10.9 Glucose 223 H D Lactate Calcium 8.7 Phosphorus Magnesium Total Bilirubin 1.3 AST 164 H ALT 97 H Alkaline Phosphatase 155 H D Total Creatine Kinase CK-MB (CK-2) CK-MB (CK-2) Rel Index Troponin I 0.188 H* B-Natriuretic Peptide Total Protein 4.7 L Albumin 2.4 L Globulin 2.3 Albumin/Globulin Ratio 1.0 Procalcitonin Nasal Screen MRSA (PCR) Chlamy pneumoniae PCR Adenovirus (PCR) B.parapertussis DNA PCR Coronavirus OC43 (PCR) Coronavirus HKU1 (PCR) Coronavirus 229E (PCR) Coronavirus NL63 (PCR) Human Metapneumovir PCR Influenza Type A (PCR) Influenza Type B (PCR) M. pneumoniae (PCR) Parainfluenza 1 (PCR) Parainfluenza 2 (PCR) Parainfluenza 3 (PCR) Parainfluenza 4 (PCR) RSV (PCR) Entero/Rhino (PCR) 10/24/18 10/24/18 10/24/18 04:45 04:45 07:30 WBC RBC Hgb Hct MCV MCH MCHC RDW Plt Count Neut % (Auto) Lymph % (Auto) [place] % (Auto) Eos % (Auto) Baso % (Auto) Neut # (Auto) Lymph # (Auto) [place] # (Auto) Eos # (Auto) Baso # (Auto) Total Counted Seg Neutrophils % Band Neutrophils % Lymphocytes % (Manual) Monocytes % (Manual) Metamyelocytes % Neutrophils # (Manual) RBC Morphology Polychromasia Anisocytosis PT INR ABG pH 7.18 L* ABG pCO2 39.3 ABG pO2 87 ABG HCO3 15 L ABG Total CO2 16 L ABG O2 Saturation 94 L ABG Base Excess -14.0 L FiO2 100 Sodium Potassium Chloride Carbon Dioxide BUN Creatinine Estimated GFR BUN/Creatinine Ratio Glucose Lactate Calcium Phosphorus Magnesium Total Bilirubin AST ALT Alkaline Phosphatase Total Creatine Kinase CK-MB (CK-2) CK-MB (CK-2) Rel Index Troponin I B-Natriuretic Peptide 458 H Total Protein Albumin Globulin Albumin/Globulin Ratio Procalcitonin 59.55 H Nasal Screen MRSA (PCR) Chlamy pneumoniae PCR Adenovirus (PCR) B.parapertussis DNA PCR Coronavirus OC43 (PCR) Coronavirus HKU1 (PCR) Coronavirus 229E (PCR) Coronavirus NL63 (PCR) Human Metapneumovir PCR Influenza Type A (PCR) Influenza Type B (PCR) M. pneumoniae (PCR) Parainfluenza 1 (PCR) Parainfluenza 2 (PCR) Parainfluenza 3 (PCR) Parainfluenza 4 (PCR) RSV (PCR) Entero/Rhino (PCR) Discharge Plan Discharge Plan Discharge Problem: Respiratory failure, Pneumonia, Acute UTI Patient Disposition: Discharge Med Rec/Prescriptions Prescriptions: No Action doxycycline hyclate 100 mg capsule 100 mg PO BID Qty: 14 RF: 0 atorvastatin [Lipitor] 10 mg Tablet 10 mg PO DAILY RF: 0 metoprolol succinate [Toprol XL] 100 mg Tablet Extended Release 24 Hr 100 mg PO QPM RF: 0 prednisone 5 mg tablet 5 mg PO BID RF: 0 aspirin 81 mg Tablet,Delayed Release (Dr/Ec) 81 mg PO BEDTIME RF: 0 warfarin 4 mg tablet 1 dose PO QPM RF: 0 pantoprazole 40 mg tablet,delayed release (DR/EC) 40 mg PO DAILY RF: 0 ramipril [Altace] 5 mg Capsule 5 mg PO DAILY RF: 0 garlic Tablet 1 tab PO QAM RF: 0 omega-3 acid ethyl esters [Lovaza] 1 gram Capsule 1 cap PO BID RF: 0 abiraterone [Zytiga] 250 mg Tablet 1,000 mg PO DAILY RF: 0 Calcium 1 tab PO TID RF: 0 One-A-Day Men's Multivitamin 1 tab PO DAILY RF: 0 amiodarone 200 mg tablet 400 mg PO DAILY RF: 0 Discharge Data Attending Provider: Danette Wright Admit Date/Time: 10/23/18 12:55
== END 2018-10-24 19:45 | disposition expired | DRG 208 ==
LOC: ED 12:28 → ICU 12:56
PROVIDERS: Nurse Practitioner Adult Health; Admitting Provider Internal Medicine; Emergency Provider Emergency Medicine; Visit Provider Internal Medicine
DX: J96.01 Acute respiratory failure with hypoxia (principal); A41.9 Sepsis, unspecified organism; J18.9 Pneumonia, unspecified organism; R65.21 Severe sepsis with septic shock; N17.9 Acute kidney failure, unspecified; C79.51 Secondary malignant neoplasm of bone; I95.9 Hypotension, unspecified; I48.0 Paroxysmal atrial fibrillation; Z79.01 Long term (current) use of anticoagulants; C61 Malignant neoplasm of prostate; Z95.1 Presence of aortocoronary bypass graft; I10 Essential (primary) hypertension; E78.5 Hyperlipidemia, unspecified
CPT/HCPCS: 36415; 36569; 36591; 36592; 36600; 51701; 71045; 71260; 74177; 76604; 80048; 80053; 81001; 81003; 81015; 82550; 82805; 83605; 83690; 83735; 83880; 84100; 84145; 84484; 85025; 85610; 85730; 87040; 87077; 87086; 87186; 87633; 87797; 93005; 94002; 94003; 94640; 94660; 94770; 94799; 96365; 96366; 96372; 96375; 96376; 99283; 99285; J0330; J1170; J1720; J1956; J2060; J2250; J2270; J2543; J2704; J3480; J7613; Q9967